=== PATIENT | female | born 1930 | race Caucasian/White ===

== ENCOUNTER 2017-04-01 12:55 | Inpatient (IN) | payer MEDICAID ==
[2017-04-01] MEDS ORDERED: Sodium Chloride 0.9% 10 ML Syringe FLUSH PRN (13:02)
[2017-04-01] MEDS ORDERED: Pantoprazole 40 MG Vial IVPUSH ONE (13:02)
[2017-04-01] MEDS ORDERED: Sodium Chloride 0.9% 2.5 ML Syringe FLUSH PRN (13:02)
--- NOTE | 2017-04-01 13:05 | EDM.PDOC ---
ED HPI GENERAL MEDICAL PROBLEM - General Chief Complaint: Gastrointestinal Problem Stated Complaint: AMB Time Seen by Provider: 04/01/17 12:59 - History of Present Illness INITIAL COMMENTS - FREE TEXT/NARRATIVE: HISTORY AND PHYSICAL: History of present illness: Patient is an 86-year-old female presents from [facility] with bloody melanotic stools patient denies any complaints upon arrival patient is contracted she has some limited history due to her baseline. Review of systems: As per history of present illness and below otherwise all systems reviewed and negative. Past medical history: As per history of present illness and as reviewed below otherwise noncontributory. Surgical history: As per history of present illness and as reviewed below otherwise noncontributory. Social history: No reported history of drug or alcohol abuse. Family history: As per history of present illness and as reviewed below otherwise noncontributory. Physical exam: HEENT: Atraumatic, normocephalic, pupils reactive, conjunctival pallor noted no scleral icterus, mucous membranes moist, throat clear, neck supple, nontender, trachea midline. Lungs: Slightly coarse diminished, breath sounds equal bilaterally, chest nontender. Heart: S1S2, regular, negative for clicks, rubs, or JVD. Abdomen: Soft, nondistended, nontender. Negative for masses or hepatosplenomegaly. Negative for costovertebral tenderness. Pelvis: Stable nontender. Genitourinary: Deferred. Rectal: Dark maroon loose stool noted strongly heme positive Extremities: Contractures noted neurovascular exam unremarkable. Neuro: Awake, alert, follows commands baseline per history no focal deficits Diagnostics: CBC CMP troponin PT/INR type and screen chest x-ray EKG CT abdomen and pelvis Therapeutics: IV O2 monitor Protonix 80 mg IV push followed by 8 mg an hour drip Impression: #1 GI bleeding Definitive disposition and diagnosis as appropriate pending reevaluation and review of above. abdominal Pain Score (Numeric/FACES): 2 - Related Data Allergies Allergy/AdvReac Type Severity Reaction Status Date / Time acetaminophen [From Tylenol] Allergy Shortness Verified 04/01/17 13:00 of Breath perfume Allergy Rash Verified 04/01/17 13:00 Home Meds: Home Meds Carvedilol [Coreg] 12.5 mg PO BID 09/23/14 [History] Meclizine [Antivert] 25 mg PO TID PRN 09/23/14 [History] Omeprazole 20 mg PO DAILY 09/23/14 [History] amLODIPine [Norvasc] 5 mg PO DAILY 09/23/14 [History] atorvaSTATin [Lipitor] 20 mg PO BEDTIME 09/23/14 [History] Ferrous Sulfate 325 mg PO TIDMEALS #45 tablet 09/27/14 [Rx] Past Medical History Other HEENT History: both eyes has cataract Other Cardiovascular History: irregular heartbeat Other OB/BYN History: hysterectomy - Past Surgical History Other Musculoskeletal Surgeries/Procedures:: left hip surgery, bilateral knee surgery Social & Family History - Tobacco Use Smoking Status *Q: Former Smoker Second Hand Smoke Exposure: No - Recreational Drug Use Recreational Drug Use: No ED ROS GENERAL - Review of Systems Review Of Systems: ROS reveals no pertinent complaints other than HPI. ED EXAM, GENERAL - Physical Exam Exam: See Below (See dictation) Course - Vital Signs Last Recorded V/S: Last Vital Signs Temp 36.3 C 04/01/17 13:01 Pulse 87 04/01/17 13:01 Resp 20 04/01/17 13:01 BP 148/68 H 04/01/17 13:01 Pulse Ox 97 04/01/17 13:01 - Orders/Labs/Meds Orders: Active Orders 24 hr Category Date Time Status Cardiac Monitoring [RC] . DIRECTED Care 04/01/17 13:01 Active EKG Documentation Completion [RC] STAT Care 04/01/17 13:01 Active Oxygen Therapy, ED [RC] ASDIRECTED Care 04/01/17 13:01 Active Pulse Oximetry [RC] ASDIRECTED Care 04/01/17 13:01 Active Verify Patient Consent Obtain [RC] ASDIRECTED Care 04/01/17 14:00 Active Abdomen Pelvis wo Cont [CT] Stat Exams 04/01/17 13:06 Ordered Chest 1V Frontal [CR] Stat Exams 04/01/17 13:02 Taken COMPREHENSIVE METABOLIC PN,CMP [CHEM] Stat Lab 04/01/17 13:28 Received CULTURE URINE [RM] Stat Lab 04/01/17 13:02 Uncollected RED BLOOD CELLS LP [BBK] Stat Lab 04/01/17 13:28 Received TROPONIN I [CHEM] Stat Lab 04/01/17 13:28 Received TYPE AND SCREEN [BBK] Stat Lab 04/01/17 13:28 Received UA W/MICROSCOPIC [URIN] Stat Lab 04/01/17 13:02 Uncollected Pantoprazole [ProTONIX IV] 80 mg Med 04/01/17 13:41 Active Sodium Chloride 0.9% [Normal Saline] 50 ml IV .Continuous Sodium Chloride 0.9% [Normal Saline] 1,000 ml Med 04/01/17 13:15 Active IV STAT Sodium Chloride 0.9% [Saline Flush] Med 04/01/17 13:02 Active 10 ml FLUSH ASDIRECTED PRN Sodium Chloride 0.9% [Saline Flush] Med 04/01/17 13:02 Active 2.5 ml FLUSH ASDIRECTED PRN Saline Lock Insert [OM.PC] Stat Oth 04/01/17 13:01 Ordered Transfuse Red Blood Cells [COMM] Stat Oth 04/01/17 14:00 Ordered Medication Orders Sodium Chloride (Normal Saline) 1,000 mls @ 125 mls/hr IV STAT EGM Last Admin: 04/01/17 13:46 Dose: 125 mls/hr Pantoprazole Sodium 80 mg/ (Sodium Chloride) 50 mls @ 5 mls/hr IV .Continuous GEM Sodium Chloride (Saline Flush) 10 ml FLUSH ASDIRECTED PRN PRN Reason: Keep Vein Open Last Admin: 04/01/17 13:47 Dose: 10 ml Sodium Chloride (Saline Flush) 2.5 ml FLUSH ASDIRECTED PRN PRN Reason: Keep Vein Open Last Admin: 04/01/17 13:47 Dose: 2.5 ml Labs: Laboratory Tests 04/01/17 04/01/17 Range/Units 13:28 13:28 WBC 10.68 (4.0-11.0) K/uL RBC 2.66 L (4.30-5.90) M/uL Hgb 7.7 L (12.0-16.0) g/dL Hct 24.3 L (36.0-46.0) % MCV 91.4 (80.0-98.0) fL MCH 28.9 (27.0-32.0) pg MCHC 31.7 (31.0-37.0) g/dL RDW Std Deviation 49.1 (28.0-62.0) fl RDW Coeff of Steven 15 (11.0-15.0) % Plt Count 255 (150-400) K/uL MPV 9.90 (7.40-12.00) fL Add Manual Diff YES Neutrophils % (Manual) 72 (48.0-80.0) % Band Neutrophils % 5 % Lymphocytes % (Manual) 21 (16.0-40.0) % Monocytes % (Manual) 2 (0.0-15.0) % Nucleated RBC % 0.0 /100WBC Absolute Seg Neuts 7.7 H (1.4-5.7) Band Neutrophils # 0.5 Lymphocytes # (Manual) 2.2 (0.6-2.4) Monocytes # (Manual) 0.2 (0.0-0.8) Nucleated RBCs # 0 K/uL INR 1.02 (0.86-1.11) Meds: Medications Generic Name Dose Route Start Last Admin Trade Name Freq PRN Reason Stop Dose Admin Sodium Chloride 1,000 mls @ 125 mls/hr 04/01/17 13:15 04/01/17 13:46 Normal Saline IV 125 mls/hr STAT GEM Administration Pantoprazole Sodium 80 mg/ 50 mls @ 5 mls/hr 04/01/17 13:41 Sodium Chloride IV .Continuous GEM Sodium Chloride 10 ml 04/01/17 13:02 04/01/17 13:47 Saline Flush FLUSH 10 ml ASDIRECTED PRN Administration Keep Vein Open Sodium Chloride 2.5 ml 04/01/17 13:02 04/01/17 13:47 Saline Flush FLUSH 2.5 ml ASDIRECTED PRN Administration Keep Vein Open Discontinued Medications Generic Name Dose Route Start Last Admin Trade Name Freq PRN Reason Stop Dose Admin Pantoprazole Sodium 80 mg/ 100 mls @ 10 mls/hr 04/01/17 13:15 Sodium Chloride IV .Continuous GEM Pantoprazole Sodium 80 mg 04/01/17 13:02 04/01/17 13:47 Protonix Iv IVPUSH 04/01/17 13:03 80 mg .BOLUS ONE Administration Departure - Departure Time of Disposition: 14:04 Disposition: Admitted As Inpatient 67 Condition: Fair Clinical Impression: GI bleed, DNR (do not resuscitate) - Discharge Information Referrals: PCP,None [Primary Care Provider] - Forms: ED Department Discharge - My Orders Last 24 Hours: My Active Orders 04/01/17 13:01 Cardiac Monitoring [RC] . DIRECTED EKG Documentation Completion [RC] STAT Oxygen Therapy, ED [RC] ASDIRECTED Pulse Oximetry [RC] ASDIRECTED Saline Lock Insert [OM.PC] Stat 04/01/17 13:02 Chest 1V Frontal [CR] Stat CULTURE URINE [RM] Stat UA W/MICROSCOPIC [URIN] Stat Sodium Chloride 0.9% [Saline Flush] 10 ml FLUSH ASDIRECTED PRN Sodium Chloride 0.9% [Saline Flush] 2.5 ml FLUSH ASDIRECTED PRN 04/01/17 13:06 Abdomen Pelvis wo Cont [CT] Stat 04/01/17 13:15 Sodium Chloride 0.9% [Normal Saline] 1,000 ml IV STAT 04/01/17 13:28 COMPREHENSIVE METABOLIC PN,CMP [CHEM] Stat RED BLOOD CELLS LP [BBK] Stat TROPONIN I [CHEM] Stat TYPE AND SCREEN [BBK] Stat 04/01/17 13:41 Pantoprazole [ProTONIX IV] 80 mg Sodium Chloride 0.9% [Normal Saline] 50 ml IV .Continuous 04/01/17 14:00 Verify Patient Consent Obtain [RC] ASDIRECTED Transfuse Red Blood Cells [COMM] Stat - Assessment/Plan Last 24 Hours: My Active Orders 04/01/17 13:01 Cardiac Monitoring [RC] . DIRECTED EKG Documentation Completion [RC] STAT Oxygen Therapy, ED [RC] ASDIRECTED Pulse Oximetry [RC] ASDIRECTED Saline Lock Insert [OM.PC] Stat 04/01/17 13:02 Chest 1V Frontal [CR] Stat CULTURE URINE [RM] Stat UA W/MICROSCOPIC [URIN] Stat Sodium Chloride 0.9% [Saline Flush] 10 ml FLUSH ASDIRECTED PRN Sodium Chloride 0.9% [Saline Flush] 2.5 ml FLUSH ASDIRECTED PRN 04/01/17 13:06 Abdomen Pelvis wo Cont [CT] Stat 04/01/17 13:15 Sodium Chloride 0.9% [Normal Saline] 1,000 ml IV STAT 04/01/17 13:28 COMPREHENSIVE METABOLIC PN,CMP [CHEM] Stat RED BLOOD CELLS LP [BBK] Stat TROPONIN I [CHEM] Stat TYPE AND SCREEN [BBK] Stat 04/01/17 13:41 Pantoprazole [ProTONIX IV] 80 mg Sodium Chloride 0.9% [Normal Saline] 50 ml IV .Continuous 04/01/17 14:00 Verify Patient Consent Obtain [RC] ASDIRECTED Transfuse Red Blood Cells [COMM] Stat
[2017-04-01] MEDS ORDERED: Pantoprazole 80 MG in Sodium Chloride 0.9% 100 ML IV SCH (13:15)
[2017-04-01] MEDS: Sodium Chloride 0.9% 1,000 ML IV SCH (13:46)
[2017-04-01 14:06] LABS: CHLORIDE,CL 105 mmol/L (98-110); SODIUM,NA 135 mmol/L (136-146)
--- NOTE | 2017-04-01 14:06 | CR ---
EXAMINATION: Portable chest radiograph. HISTORY: Shortness of breath. FINDINGS: The trachea is midline. The cardiomediastinal silhouette is within normal limits. Trace left retrocar diac infiltrate is not excluded. No pleural effusion or pneumothorax. Degenerative changes noted within the shoulders. IMPRESSION: Trace left retrocardiac infiltrate or atelectasis not excluded.
--- NOTE | 2017-04-01 14:36 | CT ---
CT of the abdomen and pelvis without contrast. HISTORY: Pain TECHNIQUE: Axial CT images were obtained of the abdomen and pelvis without contrast. Coronal and sagi ttal reconstructions obtained. FINDINGS: The lung bases are clear, no pleural effusion. The liver, spleen, adrenal glands, and pancreas appear unremarkable for noncontrast examination. Chol elithiasis without evidence of cholecystitis. There is no bulky retroperitoneal lymphadenopathy. No a bdominal ascites. Aortic atheromatous changes noted. There are no calcifications noted within the kidneys or along the courses of the ureters bilaterally. Renal cortical cysts are noted. There is a lobulated 6.5 x 2.6 cm fluid collection posterior and lat eral to the left psoas musculature. No significant adjacent stranding. The large and small bowel are normal in caliber without evidence of obstruction. Minimal diverticulos is without evidence of diverticulitis. There is no bulky pelvic lymphadenopathy. No free fluid. No fr ee air. The urinary bladder appears normal. Right hip hardware is demonstrated. Osseous structures otherwise appear osteopenic. 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 IMPRESSION: 1. No acute findings within the abdomen or pelvis. 2. Cholelithiasis without definite evidence of cholecystitis. 3. Simple appearing lobulated 6.5 x 2.8 cm cyst adjacent to the left psoas musculature. Etiology is u ncertain, this could represent a peritoneal reflection cyst. 4. Advanced osteophytic changes noted within the left hip.
[2017-04-01] MEDS ORDERED: Morphine 2 MG/ML Syringe IVPUSH PRN (16:23)
[2017-04-01] MEDS ORDERED: Ondansetron 4 MG/2 ML SDV IVPUSH PRN (16:23)
[2017-04-01] MEDS ORDERED: Ondansetron 4 MG Tab.DIS PO PRN (16:23)
[2017-04-01] MEDS ORDERED: Polyethylene Glycol 3350 Powder 17 GM Packet PO PRN (16:23)
--- NOTE | 2017-04-01 16:47 | PCM.HP ---
H&P History of Present Illness - General Date of Service: 04/01/17 Admit Problem/Dx: Admission Diagnosis/Problem Admission Diagnosis/Problem GI bleed not requiring more than 4 units of blood in 24 hours, ICU, or surgery Source of Information: Patient, Family History Limitations: Reports: Physical Impairment - History of Present Illness Initial Comments - Free Text/Narative: 86-year-old female brought to ER by ambulance from [place] for bright red blood per rectum with past medical history of hypertension, hyperlipidemia, anemia, GERD, and proximal A. fib not anticoagulated secondary fall risk. Patient was brought from [place] to emergency department secondary to bright red blood per rectum. As per ER and family she had been getting more fatigued recently and they noted some bright red per rectum this morning. She has had a couple days of melanotic stools. They deny any recent illness, fever, chills, nausea, vomiting, sore throat, chest pain, palpitations, shortness breath, syncopal episodes, or focal neurologic deficits. She has had a dry cough which is chronic. In the emergency department she was found to be anemic with a hemoglobin of 7.7. Hyponatremic sodium 135, potassium 5.7, hypocalcemia 8.2. Urine was positive for UTI. Chest x-ray showed trace left retrocardiac infiltrate or atelectasis. Patient was afebrile. CT of the abdomen showed: 1. No acute findings within abdomen or pelvis. 2. Cholelithiasis without definitive evidence of cholecystitis. 3. Simple appearing lobulated 6.5 x 2.8 cm cyst adjacent to the left psoas musculature. Etiology is uncertain, this could represent a peritoneal reflection cyst. 4. Advanced osteophyte phytic changes within the left hip. She was give 80 of protonix and started on a protonix drip. Patient was admitted for acute GI bleed/anemia/UTI. abdominal Pain Score (Numeric/FACES): 8 - Related Data Allergies/Adverse Reactions: Allergies Allergy/AdvReac Type Severity Reaction Status Date / Time acetaminophen [From Tylenol] Allergy Shortness Verified 04/01/17 13:00 of Breath perfume Allergy Rash Verified 04/01/17 13:00 Home Medications: Home Meds Carvedilol [Coreg] 12.5 mg PO BID 09/23/14 [History] Meclizine [Antivert] 25 mg PO TID PRN 09/23/14 [History] Omeprazole 20 mg PO DAILY 09/23/14 [History] amLODIPine [Norvasc] 5 mg PO DAILY 09/23/14 [History] atorvaSTATin [Lipitor] 20 mg PO BEDTIME 09/23/14 [History] Ferrous Sulfate 325 mg PO TIDMEALS #45 tablet 09/27/14 [Rx] Past Medical History Other HEENT History: both eyes has cataract Cardiovascular History: Reports: Afib Other Cardiovascular History: irregular heartbeat Respiratory History: Reports: Asthma Gastrointestinal History: Reports: GI Bleed Genitourinary History: Reports: UTI, Recurrent Other OB/BYN History: hysterectomy Psychiatric History: Reports: Depression Endocrine/Metabolic History: Reports: Diabetes, Type II - Past Surgical History Other Musculoskeletal Surgeries/Procedures:: left hip surgery, bilateral knee surgery Social & Family History - Family History Family Medical History: Noncontributory - Tobacco Use Smoking Status *Q: Unknown Ever Smoked Second Hand Smoke Exposure: No - Caffeine Use Caffeine Use: Reports: None - Recreational Drug Use Recreational Drug Use: No H&P Review of Systems - Review of Systems: Review Of Systems: See Below General: Denies: Fever, Chills, Fatigue HEENT: Denies: Dysphasia Pulmonary: Reports: Wheezing, Cough. Denies: Shortness of Breath, Pleuritic Chest Pain, Sputum, Hemoptysis Cardiovascular: Denies: Chest Pain, Palpitations Gastrointestinal: Reports: Black Stool, Bloody Stool. Denies: Abdominal Pain, Nausea, Vomiting Genitourinary: Denies: Dysuria, Burning, Pain, Hematuria Musculoskeletal: Reports: Joint Pain, Joint Swelling. Denies: Neck Pain Psychiatric: Reports: Confusion Neurological: Reports: Confusion. Denies: Dizziness, Headache Hematologic/Lymphatic: Reports: Anemia Exam - Exam Exam: See Below - Vital Signs Vital Signs: Last Vital Signs Temp 96.3 F 04/01/17 16:00 Pulse 95 04/01/17 16:00 Resp 22 H 04/01/17 16:00 BP 129/64 04/01/17 16:00 Pulse Ox 99 04/01/17 16:00 Weight: 80.83 kg - Exam Quality Assessment: DVT Prophylaxis General: Alert, Cooperative HEENT: Conjunctiva Clear, EACs Clear, EOMI, Hearing Intact, Mucosa Moist & [place] , Nares Patent, Normal Nasal Septum, Posterior Pharynx Clear Neck: Supple, Trachea Midline, 2 Lungs: Clear to Auscultation, Normal Respiratory Effort Cardiovascular: Regular Rate, Regular Rhythm, Normal S1, Normal S2 GI/Abdominal Exam: Normal Bowel Sounds, Soft, Non-Tender, No Organomegaly, No Distention, No Abnormal Bruit Back Exam: Normal Inspection Extremities: No Pedal Edema, Normal Capillary Refill, Arm Pain, Limited Range of Motion Peripheral Pulses: 2+: Radial (L), Radial (R), Posterior Tibial (L), Posterior Tibial (R), Dorsalis Pedis (L), Dorsalis Pedis (R) Skin: Warm, Dry, Intact Neurological: Cranial Nerves Intact Neuro Extensive - Mental Status: Alert, Normal Mood/Affect, Normal Cognition Neuro Extensive - Motor, Sensory, Reflexes: CN II-XII Intact Psychiatric: Alert, Normal Affect, Normal Mood - Patient Data Lab Results Last 24 hrs: Laboratory Results - last 24 hr 04/01/17 Range/Units 15:45 Urine Color YELLOW Urine Appearance CLOUDY Urine pH 6.0 (5.0-8.0) Ur Specific [place] 1.015 (1.001-1.035) Urine Protein TRACE (NEGATIVE) mg/dL Urine Glucose (UA) NEGATIVE (NEGATIVE) mg/dL Urine Ketones NEGATIVE (NEGATIVE) mg/dL Urine Occult Blood MODERATE (NEGATIVE) Urine Nitrite NEGATIVE (NEGATIVE) Urine Bilirubin NEGATIVE (NEGATIVE) Urine Urobilinogen 0.2 (<2.0) EU/dL Ur Leukocyte Esterase LARGE (NEGATIVE) Urine RBC 0-2 (0-2/HPF) Urine WBC 45-50 (0-5/HPF) Ur Epithelial Cells OCCASIONAL (NONE-FEW) Urine Bacteria 2+ H (NEGATIVE) Result Diagrams: 04/01/17 13:28 04/01/17 13:28 *Q Meaningful Use (ADM) - VTE *Q VTE Criteria *Q: - Stroke *Q Stroke Criteria *Q: - AMI *Q AMI Criteria *Q: - Problem List (1) Acute GI bleeding SNOMED Code(s): 76425872 ICD Code: K92.2 - GASTROINTESTINAL HEMORRHAGE, UNSPECIFIED Status: Acute Priority: High Current Visit: Yes (2) Hypertension SNOMED Code(s): 98639279 ICD Code: I10 - ESSENTIAL (PRIMARY) HYPERTENSION Status: Chronic Priority : Medium Current Visit: Yes Qualifiers: Hypertension type: essential hypertension Qualified Code(s): I10 - Essential (primary) hypertension (3) UTI (urinary tract infection) SNOMED Code(s): 03393946 ICD Code: N39.0 - URINARY TRACT INFECTION, SITE NOT SPECIFIED Status: Acute Priority: High Current Visit: Yes Qualifiers: Urinary tract infection type: acute cystitis (4) Arthritis, rheumatoid SNOMED Code(s): 43274401 ICD Code: M06.9 - RHEUMATOID ARTHRITIS, UNSPECIFIED Status: Chronic Priority: Low Current Visit: Yes Qualifiers: Rheumatoid arthritis location: multiple sites Rheumatoid factor presence: with rheumatoid factor Qualified Code(s): M05.79 - Rheumatoid arthritis with rheumatoid factor of multiple sites without organ or systems involvement (5) Diabetes mellitus SNOMED Code(s): 11647782 ICD Code: E11.9 - TYPE 2 DIABETES MELLITUS WITHOUT COMPLICATIONS Status: Chronic Priority: Medium Current Visit: Yes Qualifiers: Diabetes mellitus type: type 2 Diabetes mellitus complication status: without complication Diabetes mellitus keno terminal operator insulin use: unspecified keno terminal operator insulin use status Qualified Code(s): E11.9 - Type 2 diabetes mellitus without complications Problem List Initiated/Reviewed/Updated: Yes Orders Last 24hrs: Active Orders 24 hr Category Date Time Status Patient Status [ADT] Routine ADT 04/01/17 16:23 Ordered Antiembolic Devices [RC] PER UNIT ROUTINE Care 04/01/17 16:26 Ordered Notify Provider Consults [RC] ASDIRECTED Care 04/01/17 16:46 Ordered Oxygen Therapy [RC] PRN Care 04/01/17 16:23 Ordered RT Aerosol Therapy [RC] ASDIRECTED Care 04/01/17 16:26 Ordered Telemetry Monitoring [Cardiac Monitoring] [RC] . Care 04/01/17 16:38 Ordered DIRECTED Up With Assistance [RC] ASDIRECTED Care 04/01/17 16:23 Ordered VTE/DVT Education [RC] PER UNIT ROUTINE Care 04/01/17 16:23 Ordered Vital Signs [RC] Q4H Care 04/01/17 16:23 Ordered Consult to Physician [CONS] Routine Cons 04/01/17 16:45 Ordered Nothing per Oral Now Diet [DIET] Diet 04/01/17 Dinner Ordered Barium Enema Therapeutic [CR] Routine Exams 04/01/17 16:29 Ordered CBC W/O DIFF,HEMOGRAM [HEME] AM Lab 04/02/17 05:11 Ordered CBC W/O DIFF,HEMOGRAM [HEME] AM Lab 04/03/17 05:11 Ordered CBC W/O DIFF,HEMOGRAM [HEME] AM Lab 04/04/17 05:11 Ordered CBC W/O DIFF,HEMOGRAM [HEME] AM Lab 04/05/17 05:11 Ordered COMPREHENSIVE METABOLIC PN,CMP [CHEM] AM Lab 04/02/17 05:11 Ordered COMPREHENSIVE METABOLIC PN,CMP [CHEM] AM Lab 04/03/17 05:11 Ordered COMPREHENSIVE METABOLIC PN,CMP [CHEM] AM Lab 04/04/17 05:11 Ordered COMPREHENSIVE METABOLIC PN,CMP [CHEM] AM Lab 04/05/17 05:11 Ordered MAGNESIUM [CHEM] AM Lab 04/02/17 05:11 Ordered PHOSPHORUS [CHEM] AM Lab 04/02/17 05:11 Ordered Albuterol/Ipratropium [DuoNeb 3.0-0.5 MG/3 ML] Med 04/01/17 16:23 Ordered 3 ml NEB Q6H PRN Morphine Med 04/01/17 16:23 Ordered 2 mg IVPUSH Q2H PRN Ondansetron [Zofran ODT] Med 04/01/17 16:23 Ordered 4 mg PO Q4H PRN Ondansetron [Zofran] Med 04/01/17 16:23 Ordered 4 mg IVPUSH Q4H PRN Pantoprazole [ProTONIX IV] Med 04/02/17 09:00 Ordered 80 mg IVPUSH BID Polyethylene Glycol 3350 [MiraLAX] Med 04/01/17 16:23 Ordered 17 gm PO DAILY PRN Sodium Chloride 0.9% @ 125 MLS/HR (1000ml) Med 04/01/17 16:30 Ordered Sodium Chloride 0.9% [Normal Saline] 1,000 ml IV ASDIRECTED Sequential Compression Device [OM.PC] Per Unit Routine Oth 04/01/17 16:24 Ordered Resuscitation Status Routine Resus Stat 04/01/17 16:23 Ordered Medication Orders Albuterol/Ipratropium (Duoneb 3.0-0.5 Mg/3 Ml) 3 ml NEB Q6H PRN PRN Reason: Shortness Of Breath/wheezing Sodium Chloride (Normal Saline) 1,000 mls @ 125 mls/hr IV STAT GEM Last Admin: 04/01/17 13:46 Dose: 125 mls/hr Pantoprazole Sodium 80 mg/ (Sodium Chloride) 50 mls @ 5 mls/hr IV .Continuous GEM Stop: 04/02/17 00:01 Last Admin: 04/01/17 14:50 Dose: 5 mls/hr Sodium Chloride (Normal Saline) 1,000 mls @ 125 mls/hr IV ASDIRECTED GME Morphine Sulfate (Morphine) 2 mg IVPUSH Q2H PRN PRN Reason: Pain (severe 7-10) Ondansetron HCl (Zofran Odt) 4 mg PO Q4H PRN PRN Reason: nausea, able to take PO Ondansetron HCl (Zofran) 4 mg IVPUSH Q4H PRN PRN Reason: Pain Pantoprazole Sodium (Protonix Iv) 80 mg IVPUSH BID GEM Polyethylene Glycol (Miralax) 17 gm PO DAILY PRN PRN Reason: Constipation Sodium Chloride (Saline Flush) 10 ml FLUSH ASDIRECTED PRN PRN Reason: Keep Vein Open Last Admin: 04/01/17 13:47 Dose: 10 ml Sodium Chloride (Saline Flush) 2.5 ml FLUSH ASDIRECTED PRN PRN Reason: Keep Vein Open Last Admin: 04/01/17 13:47 Dose: 2.5 ml Assessment/Plan Comment:: 86-year-old female admitted for anemia hemoglobin 7.7 suspected acute GI bleed found to have UTI with past medical history of hypertension, hyperlipidemia, DM2 , rheumatoid arthritis, GERD. Suspected acute GI bleed: We'll transfuse 2 units packed red blood cells now. Get an H&H 1 hour after transfusion. May need additional units which will be ordered at that time. Therapeutic barium enema ordered. Nothing by mouth. A consult to Dr. Zimmer surgery was made and he is aware of patient. Patient was given Protonix 80 mg IV as well started on a drip. Will continue Protonix for 72 hours and will also likely add Carafate once patient started back on diet. IVF 125 NS monitor closely for vol. overload. UTI: Positive urinalysis will start on levofloxacin 750 mg IV daily. No leukocystosis or fever Hypertension: Currently stable will restart home meds and monitor closely. Hyperlipidemia: Stable at this time resume. DM2: ISS low TIDAC Rheumatoid arthritis: Patient does have a 25 g fentanyl patch which we will continue. GERD: Most likely etiology of suspected GI bleed. Currently treated with Protonix. VTE proph: SCD no pharmacologic secondary to acute GI bleed. Distal: 3-4 days.
[2017-04-01] MEDS ORDERED: Levofloxacin/Dextrose 5%-Water 750 MG in Premix Bag 1 BAG IV ONE (17:05)
[2017-04-02] MEDS: Sodium Chloride 0.9% 1,000 ML IV SCH ×3 (01:43→18:28)
--- NOTE | 2017-04-02 06:39 | PCM.PN ---
- General Info Date of Service: 04/02/17 Admission Dx/Problem (Free Text): Admission Diagnosis/Problem Admission Diagnosis/Problem GI bleed not requiring more than 4 units of blood in 24 hours, ICU, or surgery Subjective Update: Feeling better this morning not as fatigued. Denies any further bloody stools. Brown stool this am as per nursing. Was not able to get barium enema. NPO. Left arm pain from RA will need to get her fentanyl patch started from [place] which is still being verified. Russ in place. Functional Status: Reports: Pain Controlled - Review of Systems General: Denies: Fever, Weakness, Fatigue HEENT: Denies: Headaches, Visual Changes Pulmonary: Denies: Shortness of Breath, Hemoptysis Cardiovascular: Denies: Chest Pain, Palpitations, Edema Gastrointestinal: Denies: Abdominal Pain, Diarrhea, Nausea, Vomiting Genitourinary: Denies: Dysuria, Hematuria Musculoskeletal: Reports: Arm Pain. Denies: Neck Pain Skin: Denies: Cyanosis Neurological: Reports: Confusion. Denies: Dizziness, Headache - Patient Data Vitals - Most Recent: Last Vital Signs Temp 98.9 F 04/02/17 04:00 Pulse 74 04/02/17 04:00 Resp 20 04/02/17 04:00 BP 125/62 04/02/17 04:00 Pulse Ox 96 04/02/17 04:00 Weight - Most Recent: 80.83 kg I&O - Last 24 Hours: Intake & Output 04/01/17 04/01/17 04/02/17 14:59 22:59 06:59 Intake Total 350 716 Output Total 800 Balance 350 -84 Lab Results Last 24 Hours: Laboratory Results - last 24 hr 04/01/17 04/02/17 Range/Units 15:45 05:42 WBC 11.20 H (4.0-11.0) K/uL RBC 3.13 L (4.30-5.90) M/uL Hgb 9.3 L (12.0-16.0) g/dL Hct 27.6 L (36.0-46.0) % MCV 88.2 (80.0-98.0) fL MCH 29.7 (27.0-32.0) pg MCHC 33.7 (31.0-37.0) g/dL RDW Std Deviation 47.8 (28.0-62.0) fl RDW Coeff of Steven 15 (11.0-15.0) % Plt Count 199 (150-400) K/uL MPV 9.80 (7.40-12.00) fL Nucleated RBC % 0.0 /100WBC Nucleated RBCs # 0 K/uL Urine Color YELLOW Urine Appearance CLOUDY Urine pH 6.0 (5.0-8.0) Ur Specific [place] 1.015 (1.001-1.035) Urine Protein TRACE (NEGATIVE) mg/dL Urine Glucose (UA) NEGATIVE (NEGATIVE) mg/dL Urine Ketones NEGATIVE (NEGATIVE) mg/dL Urine Occult Blood MODERATE (NEGATIVE) Urine Nitrite NEGATIVE (NEGATIVE) Urine Bilirubin NEGATIVE (NEGATIVE) Urine Urobilinogen 0.2 (<2.0) EU/dL Ur Leukocyte Esterase LARGE (NEGATIVE) Urine RBC 0-2 (0-2/HPF) Urine WBC 45-50 (0-5/HPF) Ur Epithelial Cells OCCASIONAL (NONE-FEW) Urine Bacteria 2+ H (NEGATIVE) Med Orders - Current: Current Medications Albuterol/Ipratropium (Duoneb 3.0-0.5 Mg/3 Ml) 3 ml NEB Q6H PRN PRN Reason: Shortness Of Breath/wheezing Sodium Chloride (Normal Saline) 1,000 mls @ 125 mls/hr IV STAT [facility] Last Admin: 04/01/17 13:46 Dose: 125 mls/hr Sodium Chloride (Normal Saline) 1,000 mls @ 125 mls/hr IV ASDIRECTED [facility] Last Admin: 04/02/17 01:43 Dose: 125 mls/hr Insulin Aspart (Novolog) 0 unit SUBCUT TIDAC [facility] PRN Reason: Protocol Morphine Sulfate (Morphine) 2 mg IVPUSH Q2H PRN PRN Reason: Pain (severe 7-10) Ondansetron HCl (Zofran Odt) 4 mg PO Q4H PRN PRN Reason: nausea, able to take PO Ondansetron HCl (Zofran) 4 mg IVPUSH Q4H PRN PRN Reason: Pain Pantoprazole Sodium (Protonix Iv) 80 mg IVPUSH BID [facility] Polyethylene Glycol (Miralax) 17 gm PO DAILY PRN PRN Reason: Constipation Sodium Chloride (Saline Flush) 10 ml FLUSH ASDIRECTED PRN PRN Reason: Keep Vein Open Last Admin: 04/01/17 13:47 Dose: 10 ml Sodium Chloride (Saline Flush) 2.5 ml FLUSH ASDIRECTED PRN PRN Reason: Keep Vein Open Last Admin: 04/01/17 13:47 Dose: 2.5 ml Discontinued Medications Pantoprazole Sodium 80 mg/ (Sodium Chloride) 100 mls @ 10 mls/hr IV .Continuous GEM Pantoprazole Sodium 80 mg/ (Sodium Chloride) 50 mls @ 5 mls/hr IV .Continuous GEM Stop: 04/02/17 00:01 Last Admin: 04/01/17 14:50 Dose: 5 mls/hr Levofloxacin/Dextrose 750 mg/ (Premix) 150 mls @ 100 mls/hr IV DAILY ONE Stop: 04/01/17 18:34 Last Admin: 04/01/17 17:40 Dose: 100 mls/hr Pantoprazole Sodium (Protonix Iv) 80 mg IVPUSH .BOLUS ONE Stop: 04/01/17 13:03 Last Admin: 04/01/17 13:47 Dose: 80 mg - Exam Quality Assessment: DVT Prophylaxis General: Alert, Cooperative, No Acute Distress HEENT: Pupils Equal, Pupils Reactive, EOMI, Mucous Membr. Moist/[place] Neck: Supple, Trachea Midline, No JVD Lungs: Normal Respiratory Effort, Crackles Cardiovascular: Regular Rate, Regular Rhythm GI/Abdominal Exam: Normal Bowel Sounds, Soft, Non-Tender, No Organomegaly, No Distention Back Exam: Normal Inspection Extremities: Normal Inspection, Non-Tender, No Pedal Edema, Normal Capillary Refill Peripheral Pulses: 2+: Radial (L), Radial (R), Posterior Tibial (L), Posterior Tibial (R), Dorsalis Pedis (L), Dorsalis Pedis (R) Skin: Warm, Dry, Intact Neurological: No New Focal Deficit Psy/Mental Status: Alert, Normal Affect, Normal Mood - Problem List & Annotations (1) Acute GI bleeding SNOMED Code(s): 84864239 Code(s): K92.2 - GASTROINTESTINAL HEMORRHAGE, UNSPECIFIED Status: Acute Priority: High Current Visit: Yes (2) Hypertension SNOMED Code(s): 33050251 Code(s): I10 - ESSENTIAL (PRIMARY) HYPERTENSION Status: Chronic Priority : Medium Current Visit: Yes Qualifiers: Hypertension type: essential hypertension Qualified Code(s): I10 - Essential (primary) hypertension (3) UTI (urinary tract infection) SNOMED Code(s): 22246379 Code(s): N39.0 - URINARY TRACT INFECTION, SITE NOT SPECIFIED Status: Acute Priority: High Current Visit: Yes Qualifiers: Urinary tract infection type: acute cystitis (4) Arthritis, rheumatoid SNOMED Code(s): 48082537 Code(s): M06.9 - RHEUMATOID ARTHRITIS, UNSPECIFIED Status: Chronic Priority: Low Current Visit: Yes Qualifiers: Rheumatoid arthritis location: multiple sites Rheumatoid factor presence: with rheumatoid factor Qualified Code(s): M05.79 - Rheumatoid arthritis with rheumatoid factor of multiple sites without organ or systems involvement (5) Diabetes mellitus SNOMED Code(s): 02201378 Code(s): E11.9 - TYPE 2 DIABETES MELLITUS WITHOUT COMPLICATIONS Status: Chronic Priority: Medium Current Visit: Yes Qualifiers: Diabetes mellitus type: type 2 Diabetes mellitus complication status: without complication Diabetes mellitus 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 insulin use: unspecified detention insulin use status Qualified Code(s): E11.9 - Type 2 diabetes mellitus without complications - Problem List Review Problem List Initiated/Reviewed/Updated: Yes - My Orders Last 24 Hours: My Active Orders 04/01/17 16:23 Patient Status [ADT] Routine Oxygen Therapy [RC] PRN Up With Assistance [RC] ASDIRECTED Vital Signs [RC] Q4H Albuterol/Ipratropium [DuoNeb 3.0-0.5 MG/3 ML] 3 ml NEB Q6H PRN Morphine 2 mg IVPUSH Q2H PRN Ondansetron [Zofran ODT] 4 mg PO Q4H PRN Ondansetron [Zofran] 4 mg IVPUSH Q4H PRN Polyethylene Glycol 3350 [MiraLAX] 17 gm PO DAILY PRN Resuscitation Status Routine 04/01/17 16:24 Sequential Compression Device [OM.PC] Per Unit Routine 04/01/17 16:26 Antiembolic Devices [RC] PER UNIT ROUTINE RT Aerosol Therapy [RC] ASDIRECTED 04/01/17 16:30 Sodium Chloride 0.9% [Normal Saline] 1,000 ml IV ASDIRECTED 04/01/17 16:38 Telemetry Monitoring [Cardiac Monitoring] [RC] Q8H 04/01/17 16:45 Consult to Physician [CONS] Routine 04/01/17 16:46 Notify Provider Consults [RC] ASDIRECTED 04/01/17 Dinner Nothing per Oral Now Diet [DIET] 04/02/17 05:42 COMPREHENSIVE METABOLIC PN,CMP [CHEM] AM MAGNESIUM [CHEM] AM PHOSPHORUS [CHEM] AM 04/02/17 07:30 Insulin Aspart [NovoLOG] See Protocol SUBCUT TIDAC 04/02/17 09:00 Pantoprazole [ProTONIX IV] 80 mg IVPUSH BID 04/03/17 05:11 CBC W/O DIFF,HEMOGRAM [HEME] AM COMPREHENSIVE METABOLIC PN,CMP [CHEM] AM 04/04/17 05:11 CBC W/O DIFF,HEMOGRAM [HEME] AM COMPREHENSIVE METABOLIC PN,CMP [CHEM] AM 04/05/17 05:11 CBC W/O DIFF,HEMOGRAM [HEME] AM COMPREHENSIVE METABOLIC PN,CMP [CHEM] AM - Plan Plan:: 86-year-old female admitted for anemia hemoglobin 7.7 suspected acute GI bleed found to have UTI with past medical history of hypertension, hyperlipidemia, DM2 , rheumatoid arthritis, GERD. Suspected acute GI bleed: Transfused 2 untis prbc's yesterday hgb up from 7.7 to 9.3 this am. Therapeutic barium enema was not able to be given yesterday but brown stool this am. Nothing by mouth will advance to clears in afternoon. Dr. Zimmer surgery consulted. Continue Protonix for 72 hours and will also likely add Carafate once patient started back on diet. IVF 125 NS monitor closely for vol. overload. UTI: Leukocytosis of 11.2k this am. Positive urinalysis. Cont. levofloxacin 750 mg IV day 2. No fever Hypertension: Currently stable cont home meds and monitor closely. Hyperlipidemia: Stable at this time resume. DM2: ISS low TIDAC Rheumatoid arthritis: Patient does have a 25 g fentanyl patch which is continued IV 2 mg Morphine for breakthrough. GERD: Most likely etiology of suspected GI bleed. Currently treated with Protonix may need increased dosage when goes home. VTE proph: SCD no pharmacologic secondary to acute GI bleed. Distal: 2-3 days.
[2017-04-02] MEDS ORDERED: Calcium Carbonate 500 MG Tab.Chew PO ONE (07:13)
[2017-04-02] MEDS: Insulin Aspart 100 Units/ML 3 ML Pen SUBCUT SCH ×3 (08:28→17:06)
[2017-04-02] MEDS: Pantoprazole 40 MG Vial IVPUSH SCH ×2 (08:37→21:18)
--- NOTE | 2017-04-02 10:45 | PCM.CONS ---
H&P History of Present Illness - General Date of Service: 04/02/17 Admit Problem/Dx: Admission Diagnosis/Problem Admission Diagnosis/Problem GI bleed not requiring more than 4 units of blood in 24 hours, ICU, or surgery Source of Information: Patient, Provider History Limitations: Reports: Altered Mental Status, Physical Impairment - History of Present Illness Initial Comments - Free Text/Narative: Patient is an 86-year-old female transferred from [facility] yesterday with a history of melanotic stools for a couple of days followed by 2-3 days of bright red rectal bleeding. She was evaluated in the emergency room and found have a hemoglobin of 7.7. She has subsequently been transfused to a hemoglobin above 9. She currently denies any abdominal pain. A CT scan of the abdomen did reveal minimal diverticulosis. Onset of Symptoms: Reports: Gradual Duration of Symptoms: Reports: Day(s): Location: Reports: Abdomen Quality: Reports: Ache Severity: Mild Improves with: Reports: None Worsens with: Reports: None Context: Reports: Other (Rectal bleeding with black stools) Associated Symptoms: Reports: No Other Symptoms abdominal Pain Score (Numeric/FACES): 8 - Related Data Allergies/Adverse Reactions: Allergies Allergy/AdvReac Type Severity Reaction Status Date / Time acetaminophen [From Tylenol] Allergy Shortness Verified 04/01/17 13:00 of Breath perfume Allergy Rash Verified 04/01/17 13:00 Home Medications: Home Meds Carvedilol [Coreg] 12.5 mg PO BID 09/23/14 [History] Meclizine [Antivert] 25 mg PO TID PRN 09/23/14 [History] Omeprazole 20 mg PO DAILY 09/23/14 [History] amLODIPine [Norvasc] 5 mg PO DAILY 09/23/14 [History] atorvaSTATin [Lipitor] 20 mg PO BEDTIME 09/23/14 [History] Ferrous Sulfate 325 mg PO TIDMEALS #45 tablet 09/27/14 [Rx] Past Medical History Other HEENT History: both eyes has cataract Cardiovascular History: Reports: Afib Other Cardiovascular History: irregular heartbeat Respiratory History: Reports: Asthma Gastrointestinal History: Reports: GI Bleed Genitourinary History: Reports: UTI, Recurrent Other OB/BYN History: hysterectomy Psychiatric History: Reports: Depression Endocrine/Metabolic History: Reports: Diabetes, Type II - Past Surgical History Other Musculoskeletal Surgeries/Procedures:: left hip surgery, bilateral knee surgery Social & Family History - Family History Family Medical History: Noncontributory - Tobacco Use Smoking Status *Q: Unknown Ever Smoked Second Hand Smoke Exposure: No - Caffeine Use Caffeine Use: Reports: None - Recreational Drug Use Recreational Drug Use: No H&P Review of Systems - Review of Systems: Review Of Systems: ROS reveals no pertinent complaints other than HPI. Exam - Exam Exam: See Below - Vital Signs Vital Signs: Last Vital Signs Temp 96.9 F 04/02/17 08:00 Pulse 88 04/02/17 08:00 Resp 20 04/02/17 08:00 BP 145/56 H 04/02/17 08:00 Pulse Ox 94 L 04/02/17 08:00 Weight: 178 lb 3.194 oz - Exam Quality Assessment: Supplemental Oxygen General: Alert, Cooperative HEENT: Conjunctiva Clear. No: Scleral Icterus Neck: Supple, Trachea Midline Lungs: Decreased Breath Sounds Cardiovascular: Irregular Rhythm GI/Abdominal Exam: Normal Bowel Sounds, Soft, Non-Tender, No Organomegaly, No Distention. No: Guarding, Rebound Rectal (Female) Exam: Deferred Back Exam: Normal Inspection Extremities: Normal Inspection Skin: Warm, Dry, Intact Neurological: Cranial Nerves Intact Neuro Extensive - Mental Status: Alert Neuro Extensive - Motor, Sensory, Reflexes: CN II-XII Intact Psychiatric: Alert, Normal Affect, Normal Mood - Patient Data Lab Results Last 24 hrs: Laboratory Results - last 24 hr 04/01/17 04/02/17 04/02/17 Range/Units 15:45 05:42 05:42 WBC 11.20 H (4.0-11.0) K/uL RBC 3.13 L (4.30-5.90) M/uL Hgb 9.3 L (12.0-16.0) g/dL Hct 27.6 L (36.0-46.0) % MCV 88.2 (80.0-98.0) fL MCH 29.7 (27.0-32.0) pg MCHC 33.7 (31.0-37.0) g/dL RDW Std Deviation 47.8 (28.0-62.0) fl RDW Coeff of Steven 15 (11.0-15.0) % Plt Count 199 (150-400) K/uL MPV 9.80 (7.40-12.00) fL Nucleated RBC % 0.0 /100WBC Nucleated RBCs # 0 K/uL Sodium 141 (136-146) mmol/L Potassium 4.4 (3.5-5.1) mmol/L Chloride 112 H (98-110) mmol/L Carbon Dioxide 20 L (21-31) mmol/L BUN 80 H (6.0-23.0) mg/dL Creatinine 1.0 (0.6-1.5) mg/dL Est Cr Clr Drug Dosing 36.95 mL/min Estimated GFR (MDRD) 52.7 ml/min Glucose 161 H (60-110) mg/dL POC Glucose (60-110) mg/dL Calcium 8.3 L (8.8-10.8) mg/dL Phosphorus 3.5 (2.4-4.7) mg/dL Magnesium 1.7 (1.5-2.3) mEq/L Total Bilirubin 1.0 (0.1-1.5) mg/dL AST 15 (5-40) IU/L ALT 11 (8-54) IU/L Alkaline Phosphatase 52 (40-150) Total Protein 5.3 L (6.0-8.0) g/dL Albumin 2.5 L (3.4-4.8) g/dL Globulin 2.8 (2.0-3.5) g/dL Albumin/Globulin Ratio 0.9 L (1.3-2.8) Urine Color YELLOW Urine Appearance CLOUDY Urine pH 6.0 (5.0-8.0) Ur Specific [place] 1.015 (1.001-1.035) Urine Protein TRACE (NEGATIVE) mg/dL Urine Glucose (UA) NEGATIVE (NEGATIVE) mg/dL Urine Ketones NEGATIVE (NEGATIVE) mg/dL Urine Occult Blood MODERATE (NEGATIVE) Urine Nitrite NEGATIVE (NEGATIVE) Urine Bilirubin NEGATIVE (NEGATIVE) Urine Urobilinogen 0.2 (<2.0) EU/dL Ur Leukocyte Esterase LARGE (NEGATIVE) Urine RBC 0-2 (0-2/HPF) Urine WBC 45-50 (0-5/HPF) Ur Epithelial Cells OCCASIONAL (NONE-FEW) Urine Bacteria 2+ H (NEGATIVE) 04/02/17 Range/Units 06:38 WBC (4.0-11.0) K/uL RBC (4.30-5.90) M/uL Hgb (12.0-16.0) g/dL Hct (36.0-46.0) % MCV (80.0-98.0) fL MCH (27.0-32.0) pg MCHC (31.0-37.0) g/dL RDW Std Deviation (28.0-62.0) fl RDW Coeff of Steven (11.0-15.0) % Plt Count (150-400) K/uL MPV (7.40-12.00) fL Nucleated RBC % /100WBC Nucleated RBCs # K/uL Sodium (136-146) mmol/L Potassium (3.5-5.1) mmol/L Chloride (98-110) mmol/L Carbon Dioxide (21-31) mmol/L BUN (6.0-23.0) mg/dL Creatinine (0.6-1.5) mg/dL Est Cr Clr Drug Dosing mL/min Estimated GFR (MDRD) ml/min Glucose (60-110) mg/dL POC Glucose 151 H (60-110) mg/dL Calcium (8.8-10.8) mg/dL Phosphorus (2.4-4.7) mg/dL Magnesium (1.5-2.3) mEq/L Total Bilirubin (0.1-1.5) mg/dL AST (5-40) IU/L ALT (8-54) IU/L Alkaline Phosphatase (40-150) Total Protein (6.0-8.0) g/dL Albumin (3.4-4.8) g/dL Globulin (2.0-3.5) g/dL Albumin/Globulin Ratio (1.3-2.8) Urine Color Urine Appearance Urine pH (5.0-8.0) Ur Specific [place] (1.001-1.035) Urine Protein (NEGATIVE) mg/dL Urine Glucose (UA) (NEGATIVE) mg/dL Urine Ketones (NEGATIVE) mg/dL Urine Occult Blood (NEGATIVE) Urine Nitrite (NEGATIVE) Urine Bilirubin (NEGATIVE) Urine Urobilinogen (<2.0) EU/dL Ur Leukocyte Esterase (NEGATIVE) Urine RBC (0-2/HPF) Urine WBC (0-5/HPF) Ur Epithelial Cells (NONE-FEW) Urine Bacteria (NEGATIVE) Result Diagrams: 04/02/17 05:42 04/02/17 05:42 Consult PN Assessment/Plan Procedures: Procedures ASSAY OF CK (CPK) (10/03/14) ASSAY OF FERRITIN (09/23/14) ASSAY OF IRON (09/23/14) ASSAY OF LACTIC ACID (09/23/14) ASSAY OF MAGNESIUM (10/03/14) ASSAY OF NATRIURETIC PEPTIDE (10/03/14) ASSAY OF TROPONIN QUANT (09/23/14) ASSAY THYROID STIM HORMONE (09/23/14) AUTOMATED RETICULOCYTE COUNT (09/23/14) BLOOD CULTURE FOR BACTERIA (09/23/14) BLOOD TRANSFUSION SERVICE (09/23/14) BLOOD TYPING SEROLOGIC ABO (09/23/14) BLOOD TYPING SEROLOGIC RH(D) (09/23/14) CHEST X-RAY 1 VIEW FRONTAL (09/23/14) COMPATIBILITY TEST ANTIGLOB (09/23/14) COMPATIBILITY TEST INCUBATE (09/23/14) COMPATIBILITY TEST SPIN (09/23/14) COMPLETE CBC W/AUTO DIFF WBC (10/03/14) COMPREHEN METABOLIC PANEL (10/03/14) CREATINE MB FRACTION (09/23/14) CT HEAD/BRAIN W/O DYE (09/23/14) CT MAXILLOFACIAL W/O DYE (09/23/14) CT NECK SPINE W/O DYE (09/23/14) ELECTROCARDIOGRAM TRACING (10/03/14) EMERGENCY DEPT VISIT (10/03/14) GLUCOSE BLOOD TEST (10/03/14) HYDRATE IV INFUSION ADD-ON (09/23/14) HYDRATION IV INFUSION INIT (10/03/14) METABOLIC PANEL TOTAL CA (10/03/14) MICROBE SUSCEPTIBLE [place] (09/23/14) OCCULT BLD FECES 1-3 TESTS (09/23/14) OT EVALUATION (10/03/14) PROTHROMBIN TIME (09/23/14) PT EVALUATION (10/03/14) RBC ANTIBODY SCREEN (09/23/14) ROUTINE VENIPUNCTURE (10/03/14) THER/PROPH/DIAG INJ IV PUSH (09/23/14) THERAPEUTIC ACTIVITIES (10/03/14) THERAPEUTIC EXERCISES (09/23/14) TTE W/O DOPPLER COMPLETE (10/03/14) URINALYSIS AUTO W/SCOPE (10/03/14) URINE BACTERIA CULTURE (09/23/14) URINE CULTURE/COLONY COUNT (09/23/14) US EXAM ABDO BACK WALL SANTIAGO (09/23/14) X-RAY EXAM OF HIP (10/03/14) X-RAY EXAM OF KNEE 3 (10/03/14) X-RAY EXAM OF LOWER LEG (10/03/14) X-RAY EXAM OF PELVIS (10/03/14) (1) Acute GI bleeding SNOMED Code(s): 60269775 Code(s): K92.2 - GASTROINTESTINAL HEMORRHAGE, UNSPECIFIED Priority: High Current Visit: Yes (2) DNR (do not resuscitate) Priority: High Current Visit: Yes (3) GI bleed SNOMED Code(s): 28348624 Code(s): K92.2 - GASTROINTESTINAL HEMORRHAGE, UNSPECIFIED Priority: High Current Visit: Yes Qualifiers: GI bleed type/associated pathology: melena Qualified Code(s): K92.1 - Melena (4) UTI (urinary tract infection) SNOMED Code(s): 68968474 Code(s): N39.0 - URINARY TRACT INFECTION, SITE NOT SPECIFIED Priority: High Current Visit: Yes Qualifiers: Urinary tract infection type: acute cystitis (5) Arthritis, rheumatoid SNOMED Code(s): 41017603 Code(s): M06.9 - RHEUMATOID ARTHRITIS, UNSPECIFIED Priority: Low Current Visit: Yes Qualifiers: Rheumatoid arthritis location: multiple sites Rheumatoid factor presence: with rheumatoid factor Qualified Code(s): M05.79 - Rheumatoid arthritis with rheumatoid factor of multiple sites without organ or systems involvement (6) Diabetes mellitus SNOMED Code(s): 40967921 Code(s): E11.9 - TYPE 2 DIABETES MELLITUS WITHOUT COMPLICATIONS Priority: Medium Current Visit: Yes Qualifiers: Diabetes mellitus type: type 2 Diabetes mellitus complication status: without complication 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 That was not able to be completed. The patient is a very poor surgical candidate and very high risk. Given her desire for DNR status, I do not feel that endoscopic procedures are appropriate for her. If she remains hemodynamically stable and her hemoglobin doesn't drop, I think she can be treated expectantly with Protonix and Carafate. If she continues to have signs of lower GI bleeding a therapeutic barium enema should still be completed. I have also asked the nurses to send stool samples down for Hemoccult testing to delineate any persistent bleeding.
[2017-04-02] MEDS: Albuterol/Ipratropium 3.0-0.5 MG/3 ML Neb Soln NEB PRN (12:02)
[2017-04-02] MEDS: Sucralfate Suspension 1 GM/10 ML Cup PO SCH ×2 (17:02→21:18)
[2017-04-02] MEDS ORDERED: hydrALAZINE 20 MG/ML SDV IVPUSH STA (22:48)
[2017-04-03] MEDS: Sodium Chloride 0.9% 1,000 ML IV SCH ×2 (02:57→02:58)
[2017-04-03] MEDS: Insulin Aspart 100 Units/ML 3 ML Pen SUBCUT SCH ×3 (06:56→17:16)
[2017-04-03] MEDS: Sucralfate Suspension 1 GM/10 ML Cup PO SCH ×4 (06:56→21:25)
--- NOTE | 2017-04-03 06:59 | PCM.PN ---
- General Info Date of Service: 04/03/17 Admission Dx/Problem (Free Text): Admission Diagnosis/Problem Admission Diagnosis/Problem GI bleed not requiring more than 4 units of blood in 24 hours, ICU, or surgery Subjective Update: Feeling much less fatigued this morning. Pain controlled now that fentanyl patch reapplied. No reported bloody or dark tarry stool. No nausea, vomiting or diarrhea. Feeling very hungry which is much improved from yesterday. Functional Status: Reports: Pain Controlled, Tolerating Diet - Review of Systems General: Reports: Weakness, Fatigue, Appetite. Denies: Fever, Malaise, Chills HEENT: Denies: Headaches, Visual Changes Pulmonary: Reports: Cough, Sputum. Denies: Shortness of Breath, Hemoptysis, Wheezing Cardiovascular: Denies: Chest Pain, Palpitations, Edema Gastrointestinal: Denies: Abdominal Pain, Constipation, Diarrhea, Nausea, Vomiting Genitourinary: Denies: Dysuria, Hematuria Musculoskeletal: Reports: Arm Pain, Leg Pain. Denies: Neck Pain Skin: Denies: Cyanosis Neurological: Denies: Confusion, Dizziness, Headache Psychiatric: Denies: Confusion - Patient Data Vitals - Most Recent: Last Vital Signs Temp 98.8 F 04/03/17 04:00 Pulse 93 04/03/17 04:00 Resp 18 04/03/17 04:00 BP 138/56 L 04/03/17 04:00 Pulse Ox 95 04/03/17 04:00 Weight - Most Recent: 80.83 kg I&O - Last 24 Hours: Intake & Output 04/02/17 04/02/17 04/03/17 14:59 22:59 06:59 Intake Total 20 2696 1420 Output Total 1000 750 Balance 20 2524 910 Lab Results Last 24 Hours: Laboratory Results - last 24 hr 04/02/17 04/02/17 04/03/17 Range/Units 11:55 16:31 06:17 WBC (4.0-11.0) K/uL RBC (4.30-5.90) M/uL Hgb (12.0-16.0) g/dL Hct (36.0-46.0) % MCV (80.0-98.0) fL MCH (27.0-32.0) pg MCHC (31.0-37.0) g/dL RDW Std Deviation (28.0-62.0) fl RDW Coeff of Steven (11.0-15.0) % Plt Count (150-400) K/uL MPV (7.40-12.00) fL Nucleated RBC % /100WBC Nucleated RBCs # K/uL POC Glucose 205 H 292 H 127 H (60-110) mg/dL 04/03/17 Range/Units 06:22 WBC 11.18 H (4.0-11.0) K/uL RBC 2.69 L (4.30-5.90) M/uL Hgb 8.0 L (12.0-16.0) g/dL Hct 24.2 L (36.0-46.0) % MCV 90.0 (80.0-98.0) fL MCH 29.7 (27.0-32.0) pg MCHC 33.1 (31.0-37.0) g/dL RDW Std Deviation 50.2 (28.0-62.0) fl RDW Coeff of Steven 15 (11.0-15.0) % Plt Count 183 (150-400) K/uL MPV 9.30 (7.40-12.00) fL Nucleated RBC % 0.0 /100WBC Nucleated RBCs # 0 K/uL POC Glucose (60-110) mg/dL Med Orders - Current: Current Medications Albuterol/Ipratropium (Duoneb 3.0-0.5 Mg/3 Ml) 3 ml NEB Q6H PRN PRN Reason: Shortness Of Breath/wheezing Last Admin: 04/02/17 12:02 Dose: 3 ml Fentanyl (Duragesic) 25 mcg TRDERM Q72H [facility] Sodium Chloride (Normal Saline) 1,000 mls @ 125 mls/hr IV STAT [facility] Last Infusion: 04/01/17 21:46 Dose: Infused Sodium Chloride (Normal Saline) 1,000 mls @ 125 mls/hr IV ASDIRECTED [facility] Last Admin: 04/03/17 02:58 Dose: 125 mls/hr Levofloxacin/Dextrose 750 mg/ (Premix) 150 mls @ 100 mls/hr IV Q48H [facility] Insulin Aspart (Novolog) 0 unit SUBCUT TIDAC GEM PRN Reason: Protocol Last Admin: 04/03/17 06:56 Dose: Not Given Morphine Sulfate (Morphine) 2 mg IVPUSH Q2H PRN PRN Reason: Pain (severe 7-10) Last Admin: 04/03/17 03:06 Dose: 2 mg Ondansetron HCl (Zofran Odt) 4 mg PO Q4H PRN PRN Reason: nausea, able to take PO Ondansetron HCl (Zofran) 4 mg IVPUSH Q4H PRN PRN Reason: Pain Pantoprazole Sodium (Protonix Iv) 80 mg IVPUSH BID [facility] Last Admin: 04/02/17 21:18 Dose: 80 mg Polyethylene Glycol (Miralax) 17 gm PO DAILY PRN PRN Reason: Constipation Sodium Chloride (Saline Flush) 10 ml FLUSH ASDIRECTED PRN PRN Reason: Keep Vein Open Last Admin: 04/01/17 13:47 Dose: 10 ml Sodium Chloride (Saline Flush) 2.5 ml FLUSH ASDIRECTED PRN PRN Reason: Keep Vein Open Last Admin: 04/01/17 13:47 Dose: 2.5 ml Sucralfate (Carafate) 1 gm PO QIDACANDBED [facility] Last Admin: 04/03/17 06:56 Dose: 1 gm Discontinued Medications Calcium Carbonate/Glycine (Tums) 1,000 mg PO ONETIME ONE Stop: 04/02/17 07:14 Last Admin: 04/02/17 08:28 Dose: Not Given Hydralazine HCl (Apresoline) 10 mg IVPUSH ONETIME STA Stop: 04/02/17 22:49 Last Admin: 04/02/17 23:19 Dose: 10 mg Pantoprazole Sodium 80 mg/ (Sodium Chloride) 100 mls @ 10 mls/hr IV .Continuous [facility] Pantoprazole Sodium 80 mg/ (Sodium Chloride) 50 mls @ 5 mls/hr IV .Continuous [facility] Stop: 04/02/17 00:01 Last Admin: 04/01/17 14:50 Dose: 5 mls/hr Levofloxacin/Dextrose 750 mg/ (Premix) 150 mls @ 100 mls/hr IV DAILY ONE Stop: 04/01/17 18:34 Last Admin: 04/01/17 17:40 Dose: 100 mls/hr Pantoprazole Sodium (Protonix Iv) 80 mg IVPUSH .BOLUS ONE Stop: 04/01/17 13:03 Last Admin: 04/01/17 13:47 Dose: 80 mg - Exam Quality Assessment: DVT Prophylaxis General: Alert, Oriented HEENT: Pupils Equal, Pupils Reactive, EOMI, Mucous Membr. Moist/[place] Neck: Supple Lungs: Clear to Auscultation, Normal Respiratory Effort Cardiovascular: Regular Rate, Regular Rhythm GI/Abdominal Exam: Normal Bowel Sounds, Soft, Non-Tender, No Organomegaly, No Distention Back Exam: Normal Inspection Extremities: Normal Inspection, No Pedal Edema, Normal Capillary Refill, Leg Pain, Limited Range of Motion. No: Jayne's Sign Peripheral Pulses: 2+: Radial (L), Radial (R), Posterior Tibial (L), Posterior Tibial (R), Dorsalis Pedis (L), Dorsalis Pedis (R) Skin: Warm, Dry, Intact Neurological: No New Focal Deficit Psy/Mental Status: Alert, Normal Affect, Normal Mood - Problem List & Annotations (1) Acute GI bleeding SNOMED Code(s): 44395815 Code(s): K92.2 - GASTROINTESTINAL HEMORRHAGE, UNSPECIFIED Status: Acute Priority: High Current Visit: Yes (2) Hypertension SNOMED Code(s): 32779361 Code(s): I10 - ESSENTIAL (PRIMARY) HYPERTENSION Status: Chronic Priority : Medium Current Visit: Yes Qualifiers: Hypertension type: essential hypertension Qualified Code(s): I10 - Essential (primary) hypertension (3) UTI (urinary tract infection) SNOMED Code(s): 92176613 Code(s): N39.0 - URINARY TRACT INFECTION, SITE NOT SPECIFIED Status: Acute Priority: High Current Visit: Yes Qualifiers: Urinary tract infection type: acute cystitis (4) Arthritis, rheumatoid SNOMED Code(s): 61545091 Code(s): M06.9 - RHEUMATOID ARTHRITIS, UNSPECIFIED Status: Chronic Priority: Low Current Visit: Yes Qualifiers: Rheumatoid arthritis location: multiple sites Rheumatoid factor presence: with rheumatoid factor Qualified Code(s): M05.79 - Rheumatoid arthritis with rheumatoid factor of multiple sites without organ or systems involvement (5) Diabetes mellitus SNOMED Code(s): 05161532 Code(s): E11.9 - TYPE 2 DIABETES MELLITUS WITHOUT COMPLICATIONS Status: Chronic Priority: Medium Current Visit: Yes Qualifiers: Diabetes mellitus type: type 2 Diabetes mellitus complication status: with unspecified complications 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: unspecified fpc insulin use status Qualified Code(s): E11.8 - Type 2 diabetes mellitus with unspecified complications - Problem List Review Problem List Initiated/Reviewed/Updated: Yes - My Orders Last 24 Hours: My Active Orders 04/02/17 07:30 Insulin Aspart [NovoLOG] See Protocol SUBCUT TIDAC 04/02/17 09:00 Pantoprazole [ProTONIX IV] 80 mg IVPUSH BID 04/02/17 12:51 OCCULT BLOOD DIAGNOSTIC [OP] Routine 04/02/17 17:00 Sucralfate [Carafate] 1 gm PO QIDACANDBED 04/02/17 Lunch Clear Liquid Diet [DIET] 04/03/17 06:22 COMPREHENSIVE METABOLIC PN,CMP [CHEM] AM 04/03/17 08:00 fentaNYL [Duragesic] 25 mcg TRDERM Q72H 04/03/17 18:00 Levofloxacin/Dextrose 5%-Water [Levaquin in D5W 750 MG/150 ML] 750 mg Premix Bag 1 bag IV Q48H 04/04/17 05:11 CBC W/O DIFF,HEMOGRAM [HEME] AM COMPREHENSIVE METABOLIC PN,CMP [CHEM] AM 04/05/17 05:11 CBC W/O DIFF,HEMOGRAM [HEME] AM COMPREHENSIVE METABOLIC PN,CMP [CHEM] AM - Plan Plan:: 86-year-old female admitted for anemia hemoglobin 7.7 suspected acute GI bleed found to have UTI with past medical history of hypertension, hyperlipidemia, DM2 , rheumatoid arthritis, GERD. Suspected acute GI bleed: Hgb decreased today form 9.3 to 8.0. I suspect this is a delusional effect from IVF resus but will repeat H&H in afternoon. No blood stools since admission. Will slowly advance diet today and add carafate. Dr. Zimmer surgery consulted see note. Continue Protonix for 72 hours. Decrease IVF to 75 NS monitor closely for vol. overload. UTI: Continued minimal Leukocytosis of 11k this am. Klebsiella PNA urine culture pansensitive expect Ampicillin. Cont. levofloxacin 750 mg IV day 3. No fever Hypertension: Did have some hypertensive episodes treated with hydralazine prior to starting home meds while npo. Cont. to monitor closely. Hyperlipidemia: Cont. home meds. DM2: ISS low TIDAC Rheumatoid arthritis: Patient does have a 25 g fentanyl patch which is continued IV 2 mg Morphine for breakthrough. GERD: Most likely etiology of suspected GI bleed. Currently treated with Protonix may need increased dosage when goes home. Not a good candidate for anesthesia. VTE proph: SCD no pharmacologic secondary to acute GI bleed. Distal: 1-2 days pending
[2017-04-03 07:08] LABS: CHLORIDE,CL 117 mmol/L (98-110); SODIUM,NA 143 mmol/L (136-146)
[2017-04-03] MEDS: Pantoprazole 40 MG Vial IVPUSH SCH ×2 (08:11→21:26)
[2017-04-03] MEDS: fentaNYL 25 MCG/HR Transdermal Patch TRDERM SCH (08:12)
[2017-04-03] MEDS: Levofloxacin/Dextrose 5%-Water 750 MG in Premix Bag 1 BAG IV SCH (08:36)
[2017-04-03] MEDS ORDERED: Potassium Chloride 20 MEQ Tab.ER PO ONE (09:49)
[2017-04-03] MEDS: hydrALAZINE 20 MG/ML SDV IVPUSH PRN (09:51)
[2017-04-03] MEDS ORDERED: Magnesium Hydroxide 400 MG/5 ML Susp 30 ML Cup PO PRN (09:52)
[2017-04-03] MEDS ORDERED: Sodium Chloride 0.9% 1,000 ML IV SCH (10:00)
[2017-04-03] MEDS: Carvedilol 12.5 MG Tab PO SCH ×2 (10:32→21:25)
[2017-04-03] MEDS: Albuterol/Ipratropium 3.0-0.5 MG/3 ML Neb Soln NEB PRN (11:38)
[2017-04-03] MEDS: Ferrous Sulfate 325 MG Tab PO SCH ×2 (11:59→16:44)
--- NOTE | 2017-04-03 14:19 | PCM.SN ---
- Free Text/Narrative Note: Called to start IV. 22g left upper arm/chest with 22g angiocath 3rd attempt. Flushes easily. Secured with tegaderm and tape.
[2017-04-03] MEDS ORDERED: Albuterol/Ipratropium 3.0-0.5 MG/3 ML Neb Soln NEB ONE (15:00)
[2017-04-03] MEDS: Nystatin Topical Powder 15 GM Bottle TOP SCH ×2 (17:42→22:41)
[2017-04-03] MEDS ORDERED: Furosemide 40 MG/4 ML VIAL IVPUSH ONE (19:00)
[2017-04-04] MEDS: Nystatin Topical Powder 15 GM Bottle TOP SCH ×3 (06:27→21:02)
[2017-04-04] MEDS: Sucralfate Suspension 1 GM/10 ML Cup PO SCH ×4 (06:33→20:48)
[2017-04-04] MEDS: Insulin Aspart 100 Units/ML 3 ML Pen SUBCUT SCH ×3 (06:33→18:12)
[2017-04-04 06:41] LABS: CHLORIDE,CL 117 mmol/L (98-110); SODIUM,NA 142 mmol/L (136-146)
--- NOTE | 2017-04-04 08:04 | PCM.PN ---
- General Info Date of Service: 04/04/17 Admission Dx/Problem (Free Text): Admission Diagnosis/Problem Admission Diagnosis/Problem GI bleed Subjective Update: Patient alert this morning, having generalized pain all over from RA. No abdominal pain or BMs today. No urinary troubles. Reports she is starving and wants more than broth. No chest pain or SOB. Functional Status: Reports: Pain Controlled (unless moved a lot), Tolerating Diet. Denies: Ambulating - Review of Systems General: Reports: No Symptoms. Denies: Fever Pulmonary: Reports: Cough. Denies: Shortness of Breath, Sputum Cardiovascular: Reports: Edema (some noted to bilateral upper arms. ). Denies: Chest Pain Gastrointestinal: Reports: Melena. Denies: Abdominal Pain, Nausea, Vomiting Genitourinary: Reports: No Symptoms. Denies: Dysuria, Frequency, Burning Neurological: Reports: No Symptoms. Denies: Confusion Psychiatric: Reports: No Symptoms. Denies: Confusion - Patient Data Vitals - Most Recent: Last Vital Signs Temp 98.4 F 04/04/17 03:37 Pulse 85 04/04/17 03:37 Resp 20 04/04/17 03:37 BP 166/85 H 04/04/17 03:37 Pulse Ox 98 04/04/17 03:37 Weight - Most Recent: 80.83 kg I&O - Last 24 Hours: Intake & Output 04/03/17 04/04/17 04/04/17 22:59 06:59 14:59 Intake Total 1220 590 Output Total 1850 Balance 1220 -1260 Lab Results Last 24 Hours: Laboratory Results - last 24 hr 04/03/17 04/03/17 04/03/17 Range/Units 11:18 12:31 16:50 WBC (4.0-11.0) K/uL RBC (4.30-5.90) M/uL Hgb 7.7 L (12.0-16.0) g/dL Hct 23.6 L (36.0-46.0) % MCV (80.0-98.0) fL MCH (27.0-32.0) pg MCHC (31.0-37.0) g/dL RDW Std Deviation (28.0-62.0) fl RDW Coeff of Steven (11.0-15.0) % Plt Count (150-400) K/uL MPV (7.40-12.00) fL Nucleated RBC % /100WBC Nucleated RBCs # K/uL Sodium (136-146) mmol/L Potassium (3.5-5.1) mmol/L Chloride (98-110) mmol/L Carbon Dioxide (21-31) mmol/L BUN (6.0-23.0) mg/dL Creatinine (0.6-1.5) mg/dL Est Cr Clr Drug Dosing mL/min Estimated GFR (MDRD) ml/min Glucose (60-110) mg/dL POC Glucose 227 H 195 H (60-110) mg/dL Calcium (8.8-10.8) mg/dL Total Bilirubin (0.1-1.5) mg/dL AST (5-40) IU/L ALT (8-54) IU/L Alkaline Phosphatase (40-150) Total Protein (6.0-8.0) g/dL Albumin (3.4-4.8) g/dL Globulin (2.0-3.5) g/dL Albumin/Globulin Ratio (1.3-2.8) 04/04/17 04/04/17 04/04/17 Range/Units 06:05 06:05 06:32 WBC 8.81 (4.0-11.0) K/uL RBC 3.42 L (4.30-5.90) M/uL Hgb 10.2 L (12.0-16.0) g/dL Hct 30.8 L (36.0-46.0) % MCV 90.1 (80.0-98.0) fL MCH 29.8 (27.0-32.0) pg MCHC 33.1 (31.0-37.0) g/dL RDW Std Deviation 50.5 (28.0-62.0) fl RDW Coeff of Steven 16 H (11.0-15.0) % Plt Count 149 L (150-400) K/uL MPV 9.00 (7.40-12.00) fL Nucleated RBC % 0.0 /100WBC Nucleated RBCs # 0 K/uL Sodium 142 (136-146) mmol/L Potassium 3.7 (3.5-5.1) mmol/L Chloride 117 H (98-110) mmol/L Carbon Dioxide 19 L (21-31) mmol/L BUN 24 H (6.0-23.0) mg/dL Creatinine 0.7 (0.6-1.5) mg/dL Est Cr Clr Drug Dosing 52.79 mL/min Estimated GFR (MDRD) > 60.0 ml/min Glucose 124 H (60-110) mg/dL POC Glucose 114 H (60-110) mg/dL Calcium 8.2 L (8.8-10.8) mg/dL Total Bilirubin 0.9 (0.1-1.5) mg/dL AST 17 (5-40) IU/L ALT 11 (8-54) IU/L Alkaline Phosphatase 49 (40-150) Total Protein 5.2 L (6.0-8.0) g/dL Albumin 2.5 L (3.4-4.8) g/dL Globulin 2.7 (2.0-3.5) g/dL Albumin/Globulin Ratio 0.9 L (1.3-2.8) Zach Results Last 24 Hours: Microbiology 04/01/17 15:45 Urine Culture - Final Urine, Clean Catch Klebsiella Pneumoniae Normal Urogenital Georgette Med Orders - Current: Current Medications Albuterol/Ipratropium (Duoneb 3.0-0.5 Mg/3 Ml) 3 ml NEB Q6H PRN PRN Reason: Shortness Of Breath/wheezing Last Admin: 04/03/17 11:38 Dose: 3 ml Carvedilol (Coreg) 12.5 mg PO BID [facility] Last Admin: 04/03/17 21:25 Dose: 12.5 mg Fentanyl (Duragesic) 25 mcg TRDERM Q72H [facility] Last Admin: 04/03/17 08:12 Dose: 25 mcg Ferrous Sulfate (Ferrous Sulfate) 325 mg PO TIDMEALS [facility] Last Admin: 04/03/17 16:44 Dose: 325 mg Hydralazine HCl (Apresoline) 10 mg IVPUSH Q6H PRN PRN Reason: SBP>170mmHg Last Admin: 04/03/17 09:51 Dose: 10 mg Levofloxacin/Dextrose 750 mg/ (Premix) 150 mls @ 100 mls/hr IV Q24H [facility] Last Admin: 04/03/17 08:36 Dose: 100 mls/hr Sodium Chloride (Normal Saline) 1,000 mls @ 75 mls/hr IV ASDIRECTED [facility] Last Admin: 04/04/17 02:42 Dose: 75 mls/hr Insulin Aspart (Novolog) 0 unit SUBCUT TIDAC [facility] PRN Reason: Protocol Last Admin: 04/04/17 06:33 Dose: Not Given Magnesium Hydroxide (Milk Of Magnesia) 30 ml PO . NEEDED PRN PRN Reason: Constipation Morphine Sulfate (Morphine) 2 mg IVPUSH Q2H PRN PRN Reason: Pain (severe 7-10) Last Admin: 04/03/17 03:06 Dose: 2 mg Nystatin (Nystop) 0 gm TOP TID [facility] Last Admin: 04/04/17 06:27 Dose: 1 dose Ondansetron HCl (Zofran Odt) 4 mg PO Q4H PRN PRN Reason: nausea, able to take PO Ondansetron HCl (Zofran) 4 mg IVPUSH Q4H PRN PRN Reason: Pain Pantoprazole Sodium (Protonix Iv) 80 mg IVPUSH BID [facility] Last Admin: 04/03/17 21:26 Dose: 80 mg Polyethylene Glycol (Miralax) 17 gm PO DAILY PRN PRN Reason: Constipation Sodium Chloride (Saline Flush) 10 ml FLUSH ASDIRECTED PRN PRN Reason: Keep Vein Open Last Admin: 04/01/17 13:47 Dose: 10 ml Sodium Chloride (Saline Flush) 2.5 ml FLUSH ASDIRECTED PRN PRN Reason: Keep Vein Open Last Admin: 04/01/17 13:47 Dose: 2.5 ml Sucralfate (Carafate) 1 gm PO QIDACANDBED [facility] Last Admin: 04/04/17 06:33 Dose: 1 gm Discontinued Medications Albuterol/Ipratropium (Duoneb 3.0-0.5 Mg/3 Ml) 3 ml NEB ONETIME ONE Stop: 04/03/17 15:01 Last Admin: 04/03/17 15:00 Dose: 3 ml Calcium Carbonate/Glycine (Tums) 1,000 mg PO ONETIME ONE Stop: 04/02/17 07:14 Last Admin: 04/02/17 08:28 Dose: Not Given Furosemide (Lasix) 20 mg IVPUSH NOW ONE Stop: 04/03/17 19:01 Last Admin: 04/03/17 19:09 Dose: 20 mg Hydralazine HCl (Apresoline) 10 mg IVPUSH ONETIME STA Stop: 04/02/17 22:49 Last Admin: 04/02/17 23:19 Dose: 10 mg Pantoprazole Sodium 80 mg/ (Sodium Chloride) 100 mls @ 10 mls/hr IV .Continuous [facility] Sodium Chloride (Normal Saline) 1,000 mls @ 125 mls/hr IV STAT [facility] Last Infusion: 04/01/17 21:46 Dose: Infused Pantoprazole Sodium 80 mg/ (Sodium Chloride) 50 mls @ 5 mls/hr IV .Continuous [facility] Stop: 04/02/17 00:01 Last Admin: 04/01/17 14:50 Dose: 5 mls/hr Sodium Chloride (Normal Saline) 1,000 mls @ 125 mls/hr IV ASDIRECTED [facility] Last Admin: 04/03/17 02:58 Dose: 125 mls/hr Levofloxacin/Dextrose 750 mg/ (Premix) 150 mls @ 100 mls/hr IV DAILY ONE Stop: 04/01/17 18:34 Last Admin: 04/01/17 17:40 Dose: 100 mls/hr Pantoprazole Sodium (Protonix Iv) 80 mg IVPUSH .BOLUS ONE Stop: 04/01/17 13:03 Last Admin: 04/01/17 13:47 Dose: 80 mg Potassium Chloride (Klor-Con M20) 40 meq PO ONETIME ONE Stop: 04/03/17 09:50 Last Admin: 04/03/17 10:31 Dose: 40 meq - Exam Quality Assessment: Urine Catheter, DVT Prophylaxis (SCDs only) General: Alert, Cooperative, No Acute Distress Neck: Supple Lungs: Clear to Auscultation, Normal Respiratory Effort, Other (some bronchial breath sounds noted clears with cough.) Cardiovascular: Regular Rate, Regular Rhythm, No Murmurs GI/Abdominal Exam: Normal Bowel Sounds, Soft, Non-Tender, Other (upon rectal exam, patient had large melanotic, maroon stool, no hemorrhoids noted. ) Extremities: Normal Inspection, No Pedal Edema, Other (edema to upper arms, not pitting. ). No: Normal Range of Motion (limited due to RA and pain) Neurological: No New Focal Deficit Psy/Mental Status: Alert, Normal Affect, Normal Mood - Problem List & Annotations (1) Acute GI bleeding SNOMED Code(s): 38807576 Code(s): K92.2 - GASTROINTESTINAL HEMORRHAGE, UNSPECIFIED Status: Acute Priority: High Current Visit: Yes (2) UTI (urinary tract infection) SNOMED Code(s): 34816023 Code(s): N39.0 - URINARY TRACT INFECTION, SITE NOT SPECIFIED Status: Acute Priority: High Current Visit: Yes Qualifiers: Urinary tract infection type: acute cystitis (3) Arthritis, rheumatoid SNOMED Code(s): 47309037 Code(s): M06.9 - RHEUMATOID ARTHRITIS, UNSPECIFIED Status: Chronic Priority: Low Current Visit: Yes Qualifiers: Rheumatoid arthritis location: multiple sites Rheumatoid factor presence: with rheumatoid factor Qualified Code(s): M05.79 - Rheumatoid arthritis with rheumatoid factor of multiple sites without organ or systems involvement (4) Diabetes mellitus SNOMED Code(s): 45747518 Code(s): E11.9 - TYPE 2 DIABETES MELLITUS WITHOUT COMPLICATIONS Status: Chronic Priority: Medium Current Visit: Yes Qualifiers: Diabetes mellitus type: type 2 Diabetes mellitus complication status: with unspecified complications Diabetes mellitus intermediate insulin use: unspecified intermediate insulin use status Qualified Code(s): E11.8 - Type 2 diabetes mellitus with unspecified complications (5) Hypertension SNOMED Code(s): 98383476 Code(s): I10 - ESSENTIAL (PRIMARY) HYPERTENSION Status: Chronic Priority : Medium Current Visit: Yes Qualifiers: Hypertension type: essential hypertension Qualified Code(s): I10 - Essential (primary) hypertension (6) Atrial fibrillation SNOMED Code(s): 41833338 Code(s): I48.91 - UNSPECIFIED ATRIAL FIBRILLATION Status: Acute Current Visit: No - Problem List Review Problem List Initiated/Reviewed/Updated: Yes - Plan Plan:: 86-year-old female admitted for anemia hemoglobin 7.7 suspected acute GI bleed found to have UTI with past medical history of hypertension, hyperlipidemia, DM2 , rheumatoid arthritis, GERD. 1. Acute GI bleed: Hgb 10.2 this morning, after 2 units of PRBCs last evening after repeat HH 7.7 yesterday evening. Upon rectal exam today, large melanotic and maroon stool noted Hemoccult obtained and positive. Will order therapeutic barium enema as recommended per Dr. Zimmer surgery, for lower GI bleeding. Continue Protonix for 72 hours. Stop IVF today, some edema to upper arms. 2. UTI: Improving, leukocytosis resolved this morning. Klebsiella PNA urine culture pansensitive expect Ampicillin. Cont. Continue Levofloxacin 750 mg IV daily 3. Hypertension: Continued to be elevated today, continue home meds. Given dose of Lasix last evening with blood. May consider another dose today. Cont. to monitor closely. 4. Hyperlipidemia: Stable. Cont. home meds. 5. DM2: Stable. ISS low TIDAC 6. Rheumatoid arthritis: Pain ok, worse with movement. Continue Fentanyl patch and Morphine for breakthrough. 7. GERD: Continue Protonix may need increased dosage when goes home. Not a good candidate for anesthesia. VTE prophylaxis: SCD no pharmacologic secondary to acute GI bleed. Dispo: 2-3 days pending improvement
[2017-04-04] MEDS: Ferrous Sulfate 325 MG Tab PO SCH ×3 (09:38→16:49)
[2017-04-04] MEDS: Levofloxacin/Dextrose 5%-Water 750 MG in Premix Bag 1 BAG IV SCH (09:39)
[2017-04-04] MEDS: Carvedilol 12.5 MG Tab PO SCH ×2 (09:39→20:48)
[2017-04-04] MEDS: hydrALAZINE 20 MG/ML SDV IVPUSH PRN ×2 (09:42→19:00)
[2017-04-04] MEDS: Pantoprazole 40 MG Vial IVPUSH SCH ×2 (10:15→20:48)
--- NOTE | 2017-04-04 16:05 | CR ---
EXAMINATION: Single contrast barium enema HISTORY: Anemia COMPARISON: CT dated 04/01/2017 TECHNIQUE: Standard single contrast barium minimal was attempted. FINDINGS/IMPRESSION: The balloon was inflated within the rectum, however following multiple attempts contrast would leak around the balloon. Contrast was unable to be passed beyond the sigmoid region. A few diverticula are noted, however the overall the procedure was likely insufficient for therapeutic barium enema.
[2017-04-04] MEDS: Albuterol/Ipratropium 3.0-0.5 MG/3 ML Neb Soln NEB PRN (18:36)
[2017-04-05 06:05] LABS: CHLORIDE,CL 115 mmol/L (98-110); SODIUM,NA 141 mmol/L (136-146)
[2017-04-05] MEDS: Sucralfate Suspension 1 GM/10 ML Cup PO SCH ×4 (06:40→20:31)
[2017-04-05] MEDS: Nystatin Topical Powder 15 GM Bottle TOP SCH ×3 (06:41→22:13)
[2017-04-05] MEDS: Insulin Aspart 100 Units/ML 3 ML Pen SUBCUT SCH ×3 (06:41→17:31)
--- NOTE | 2017-04-05 08:52 | PCM.PN ---
- General Info Date of Service: 04/05/17 Admission Dx/Problem (Free Text): Admission Diagnosis/Problem Admission Diagnosis/Problem GI bleed Subjective Update: Doing ok this morning, no pain. No chest pain or SOB. reports some intermittent SOB but otherwise ok. Denies abdominal pain and no BMs today. Explained to her the barium enema likely was effective due to leaking of barium when it was attempted to be instilled. Will monitor today. Functional Status: Reports: Pain Controlled, Tolerating Diet, Urinating. Denies : Ambulating - Review of Systems HEENT: Reports: No Symptoms. Denies: Headaches, Sore Throat, Rhinitis, Visual Changes Pulmonary: Reports: Shortness of Breath (intermittent). Denies: Cough Cardiovascular: Reports: No Symptoms. Denies: Chest Pain, Palpitations, Edema Gastrointestinal: Reports: No Symptoms. Denies: Abdominal Pain, Nausea, Vomiting Genitourinary: Reports: No Symptoms. Denies: Dysuria, Frequency, Burning Neurological: Reports: No Symptoms. Denies: Confusion Psychiatric: Reports: No Symptoms. Denies: Confusion - Patient Data Vitals - Most Recent: Last Vital Signs Temp 98.7 F 04/05/17 04:00 Pulse 80 04/05/17 04:00 Resp 20 04/05/17 04:00 BP 174/82 H 04/05/17 04:00 Pulse Ox 92 L 04/05/17 04:00 Weight - Most Recent: 80.83 kg I&O - Last 24 Hours: Intake & Output 04/04/17 04/05/17 04/05/17 22:59 06:59 14:59 Intake Total 990 50 Output Total 1180 800 Balance -190 -750 Lab Results Last 24 Hours: Laboratory Results - last 24 hr 04/04/17 04/04/17 04/04/17 Range/Units 12:06 12:18 17:14 WBC (4.0-11.0) K/uL RBC (4.30-5.90) M/uL Hgb 10.5 L (12.0-16.0) g/dL Hct 30.9 L (36.0-46.0) % MCV (80.0-98.0) fL MCH (27.0-32.0) pg MCHC (31.0-37.0) g/dL RDW Std Deviation (28.0-62.0) fl RDW Coeff of Steven (11.0-15.0) % Plt Count (150-400) K/uL MPV (7.40-12.00) fL Nucleated RBC % /100WBC Nucleated RBCs # K/uL Sodium (136-146) mmol/L Potassium (3.5-5.1) mmol/L Chloride (98-110) mmol/L Carbon Dioxide (21-31) mmol/L BUN (6.0-23.0) mg/dL Creatinine (0.6-1.5) mg/dL Est Cr Clr Drug Dosing mL/min Estimated GFR (MDRD) ml/min Glucose (60-110) mg/dL POC Glucose 150 H 156 H (60-110) mg/dL Calcium (8.8-10.8) mg/dL Total Bilirubin (0.1-1.5) mg/dL AST (5-40) IU/L ALT (8-54) IU/L Alkaline Phosphatase (40-150) Total Protein (6.0-8.0) g/dL Albumin (3.4-4.8) g/dL Globulin (2.0-3.5) g/dL Albumin/Globulin Ratio (1.3-2.8) 04/05/17 04/05/17 04/05/17 Range/Units 05:20 05:20 05:56 WBC 9.56 (4.0-11.0) K/uL RBC 3.37 L (4.30-5.90) M/uL Hgb 9.9 L (12.0-16.0) g/dL Hct 30.3 L (36.0-46.0) % MCV 89.9 (80.0-98.0) fL MCH 29.4 (27.0-32.0) pg MCHC 32.7 (31.0-37.0) g/dL RDW Std Deviation 51.0 (28.0-62.0) fl RDW Coeff of Steven 16 H (11.0-15.0) % Plt Count 136 L (150-400) K/uL MPV 9.00 (7.40-12.00) fL Nucleated RBC % 0.0 /100WBC Nucleated RBCs # 0 K/uL Sodium 141 (136-146) mmol/L Potassium 3.5 (3.5-5.1) mmol/L Chloride 115 H (98-110) mmol/L Carbon Dioxide 21 (21-31) mmol/L BUN 21 (6.0-23.0) mg/dL Creatinine 0.8 (0.6-1.5) mg/dL Est Cr Clr Drug Dosing 46.19 mL/min Estimated GFR (MDRD) > 60.0 ml/min Glucose 129 H (60-110) mg/dL POC Glucose 109 (60-110) mg/dL Calcium 8.0 L (8.8-10.8) mg/dL Total Bilirubin 1.0 (0.1-1.5) mg/dL AST 13 (5-40) IU/L ALT 9 (8-54) IU/L Alkaline Phosphatase 49 (40-150) Total Protein 4.5 L (6.0-8.0) g/dL Albumin 2.3 L (3.4-4.8) g/dL Globulin 2.2 (2.0-3.5) g/dL Albumin/Globulin Ratio 1.1 L (1.3-2.8) Zach Results Last 24 Hours: Microbiology 04/04/17 11:20 Stool Occult Blood (ZACH) - Final Stool / Feces - Stool, Aspirate POSITIVE OCCULT BLOOD Med Orders - Current: Current Medications Albuterol/Ipratropium (Duoneb 3.0-0.5 Mg/3 Ml) 3 ml NEB Q6H PRN PRN Reason: Shortness Of Breath/wheezing Last Admin: 04/04/17 18:36 Dose: 3 ml Carvedilol (Coreg) 12.5 mg PO BID [facility] Last Admin: 04/04/17 20:48 Dose: 12.5 mg Fentanyl (Duragesic) 25 mcg TRDERM Q72H [facility] Last Admin: 04/03/17 08:12 Dose: 25 mcg Ferrous Sulfate (Ferrous Sulfate) 325 mg PO TIDMEALS [facility] Last Admin: 04/04/17 16:49 Dose: 325 mg Hydralazine HCl (Apresoline) 10 mg IVPUSH Q6H PRN PRN Reason: SBP>170mmHg Last Admin: 04/04/17 19:00 Dose: 10 mg Levofloxacin/Dextrose 750 mg/ (Premix) 150 mls @ 100 mls/hr IV Q24H [facility] Last Admin: 04/04/17 09:39 Dose: 100 mls/hr Insulin Aspart (Novolog) 0 unit SUBCUT TIDAC [facility] PRN Reason: Protocol Last Admin: 04/05/17 06:41 Dose: Not Given Magnesium Hydroxide (Milk Of Magnesia) 30 ml PO . NEEDED PRN PRN Reason: Constipation Morphine Sulfate (Morphine) 2 mg IVPUSH Q2H PRN PRN Reason: Pain (severe 7-10) Last Admin: 04/03/17 03:06 Dose: 2 mg Nystatin (Nystop) 0 gm TOP TID [facility] Last Admin: 04/05/17 06:41 Dose: 1 applic Ondansetron HCl (Zofran Odt) 4 mg PO Q4H PRN PRN Reason: nausea, able to take PO Ondansetron HCl (Zofran) 4 mg IVPUSH Q4H PRN PRN Reason: Pain Pantoprazole Sodium (Protonix Iv) 80 mg IVPUSH BID [facility] Last Admin: 04/04/17 20:48 Dose: 80 mg Polyethylene Glycol (Miralax) 17 gm PO DAILY PRN PRN Reason: Constipation Sodium Chloride (Saline Flush) 10 ml FLUSH ASDIRECTED PRN PRN Reason: Keep Vein Open Last Admin: 04/01/17 13:47 Dose: 10 ml Sodium Chloride (Saline Flush) 2.5 ml FLUSH ASDIRECTED PRN PRN Reason: Keep Vein Open Last Admin: 04/01/17 13:47 Dose: 2.5 ml Sucralfate (Carafate) 1 gm PO QIDACANDBED [facility] Last Admin: 04/05/17 06:40 Dose: 1 gm Discontinued Medications Albuterol/Ipratropium (Duoneb 3.0-0.5 Mg/3 Ml) 3 ml NEB ONETIME ONE Stop: 04/03/17 15:01 Last Admin: 04/03/17 15:00 Dose: 3 ml Calcium Carbonate/Glycine (Tums) 1,000 mg PO ONETIME ONE Stop: 04/02/17 07:14 Last Admin: 04/02/17 08:28 Dose: Not Given Furosemide (Lasix) 20 mg IVPUSH NOW ONE Stop: 04/03/17 19:01 Last Admin: 04/03/17 19:09 Dose: 20 mg Hydralazine HCl (Apresoline) 10 mg IVPUSH ONETIME STA Stop: 04/02/17 22:49 Last Admin: 04/02/17 23:19 Dose: 10 mg Pantoprazole Sodium 80 mg/ (Sodium Chloride) 100 mls @ 10 mls/hr IV .Continuous GEM Sodium Chloride (Normal Saline) 1,000 mls @ 125 mls/hr IV STAT GEM Last Infusion: 04/01/17 21:46 Dose: Infused Pantoprazole Sodium 80 mg/ (Sodium Chloride) 50 mls @ 5 mls/hr IV .Continuous GEM Stop: 04/02/17 00:01 Last Admin: 04/01/17 14:50 Dose: 5 mls/hr Sodium Chloride (Normal Saline) 1,000 mls @ 125 mls/hr IV ASDIRECTED GEM Last Admin: 04/03/17 02:58 Dose: 125 mls/hr Levofloxacin/Dextrose 750 mg/ (Premix) 150 mls @ 100 mls/hr IV DAILY ONE Stop: 04/01/17 18:34 Last Admin: 04/01/17 17:40 Dose: 100 mls/hr Sodium Chloride (Normal Saline) 1,000 mls @ 75 mls/hr IV ASDIRECTED [facility] Last Admin: 04/04/17 02:42 Dose: 75 mls/hr Pantoprazole Sodium (Protonix Iv) 80 mg IVPUSH .BOLUS ONE Stop: 04/01/17 13:03 Last Admin: 04/01/17 13:47 Dose: 80 mg Potassium Chloride (Klor-Con M20) 40 meq PO ONETIME ONE Stop: 04/03/17 09:50 Last Admin: 04/03/17 10:31 Dose: 40 meq - Exam General: Alert, Oriented, Cooperative, No Acute Distress Lungs: Clear to Auscultation, Normal Respiratory Effort Cardiovascular: Regular Rate, Regular Rhythm GI/Abdominal Exam: Normal Bowel Sounds, Soft, Non-Tender, No Organomegaly, No Distention, No Abnormal Bruit, No Mass, Pelvis Stable Extremities: Normal Inspection, Normal Range of Motion, Non-Tender, No Pedal Edema, Normal Capillary Refill, Other (some +1 edema to upper extremities.) Neurological: No New Focal Deficit Psy/Mental Status: Alert, Normal Affect, Normal Mood - Problem List & Annotations (1) Acute GI bleeding SNOMED Code(s): 53365941 Code(s): K92.2 - GASTROINTESTINAL HEMORRHAGE, UNSPECIFIED Status: Acute Priority: High Current Visit: Yes (2) UTI (urinary tract infection) SNOMED Code(s): 52918429 Code(s): N39.0 - URINARY TRACT INFECTION, SITE NOT SPECIFIED Status: Acute Priority: High Current Visit: Yes Qualifiers: Urinary tract infection type: acute cystitis (3) Arthritis, rheumatoid SNOMED Code(s): 08248762 Code(s): M06.9 - RHEUMATOID ARTHRITIS, UNSPECIFIED Status: Chronic Priority: Low Current Visit: Yes Qualifiers: Rheumatoid arthritis location: multiple sites Rheumatoid factor presence: with rheumatoid factor Qualified Code(s): M05.79 - Rheumatoid arthritis with rheumatoid factor of multiple sites without organ or systems involvement (4) Diabetes mellitus SNOMED Code(s): 49359943 Code(s): E11.9 - TYPE 2 DIABETES MELLITUS WITHOUT COMPLICATIONS Status: Chronic Priority: Medium Current Visit: Yes Qualifiers: Diabetes mellitus type: type 2 Diabetes mellitus complication status: with unspecified complications 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 Qualified Code(s): E11.8 - Type 2 diabetes mellitus with unspecified complications (5) Hypertension SNOMED Code(s): 28432684 Code(s): I10 - ESSENTIAL (PRIMARY) HYPERTENSION Status: Chronic Priority : Medium Current Visit: Yes Qualifiers: Hypertension type: essential hypertension Qualified Code(s): I10 - Essential (primary) hypertension (6) Atrial fibrillation SNOMED Code(s): 22076862 Code(s): I48.91 - UNSPECIFIED ATRIAL FIBRILLATION Status: Acute Current Visit: No - Problem List Review Problem List Initiated/Reviewed/Updated: Yes - My Orders Last 24 Hours: My Active Orders 04/04/17 Lunch Soft Diet [DIET] - Plan Plan:: 86-year-old female admitted for anemia hemoglobin 7.7 suspected acute GI bleed found to have UTI with past medical history of hypertension, hyperlipidemia, DM2 , rheumatoid arthritis, GERD. 1. Acute GI bleed: Hgb 9.9 this morning. large melanotic and maroon stool noted Hemoccult obtained and positive yesterday. No further stools today or overnight. Will monitor. Therapeutic barium enema unsuccessful due to leaking of barium from rectum. Continue Protonix but now PO. Monitor for stools, if conitnue to be maroon and bloody may need to talk to family and patient regarding goals of care. Patient and family yesterday were ok with barium enema but no further interventions such as colonoscopy or EGD. 2. UTI: Improving. Klebsiella PNA urine culture pansensitive expect Ampicillin. Cont. Continue Levofloxacin 750 mg IV daily 3. Hypertension: Continued to be elevated today, continue home meds. Will give dose of Lasix 40 mg IV now. Cont. to monitor closely. 4. Hyperlipidemia: Stable. Cont. home meds. 5. DM2: Stable. ISS low TIDAC 6. Rheumatoid arthritis: Pain ok, worse with movement. Continue Fentanyl patch and Morphine for breakthrough. 7. GERD: Continue Protonix PO VTE prophylaxis: SCD no pharmacologic secondary to acute GI bleed. Dispo: 2-3 days pending improvement
[2017-04-05] MEDS: Carvedilol 12.5 MG Tab PO SCH ×2 (09:43→20:31)
[2017-04-05] MEDS: Ferrous Sulfate 325 MG Tab PO SCH ×3 (09:44→17:31)
[2017-04-05] MEDS: Pantoprazole 40 MG Vial IVPUSH SCH (09:44)
[2017-04-05] MEDS: Levofloxacin/Dextrose 5%-Water 750 MG in Premix Bag 1 BAG IV SCH (09:44)
[2017-04-05] MEDS: hydrALAZINE 20 MG/ML SDV IVPUSH PRN (09:45)
[2017-04-05] MEDS ORDERED: Furosemide 40 MG/4 ML VIAL IVPUSH ONE (12:22)
[2017-04-05] MEDS: Pantoprazole 40 MG Tab.CR PO SCH (16:16)
[2017-04-06] MEDS: Nystatin Topical Powder 15 GM Bottle TOP SCH ×2 (06:53→16:13)
[2017-04-06] MEDS: Pantoprazole 40 MG Tab.CR PO SCH ×2 (06:54→18:22)
[2017-04-06] MEDS: Insulin Aspart 100 Units/ML 3 ML Pen SUBCUT SCH ×3 (06:54→18:21)
[2017-04-06] MEDS: Sucralfate Suspension 1 GM/10 ML Cup PO SCH ×3 (06:54→18:21)
[2017-04-06 07:50] LABS: CHLORIDE,CL 112 mmol/L (98-110); SODIUM,NA 139 mmol/L (136-146)
[2017-04-06 08:53] VITALS: BP 191/79
[2017-04-06] MEDS ORDERED: Potassium Chloride 20 MEQ Tab.ER PO ONE (08:59)
[2017-04-06] MEDS: fentaNYL 25 MCG/HR Transdermal Patch TRDERM SCH (09:05)
[2017-04-06] MEDS: Ferrous Sulfate 325 MG Tab PO SCH ×3 (09:07→18:22)
[2017-04-06] MEDS: Carvedilol 12.5 MG Tab PO SCH (09:08)
[2017-04-06] MEDS: hydrALAZINE 20 MG/ML SDV IVPUSH PRN (09:10)
--- NOTE | 2017-04-06 10:47 | PCM.DCSUM1 ---
Discharge Summary - Discharge Data Discharge Date: 04/06/17 Discharge Disposition: DC/Tfer to SNF 03 Condition: Stable - Discharge Diagnosis/Problem(s) (1) Acute GI bleeding SNOMED Code(s): 92322461 ICD Code: K92.2 - GASTROINTESTINAL HEMORRHAGE, UNSPECIFIED Status: Acute Priority: High Current Visit: Yes (2) UTI (urinary tract infection) SNOMED Code(s): 76097765 ICD Code: N39.0 - URINARY TRACT INFECTION, SITE NOT SPECIFIED Status: Acute Priority: High Current Visit: Yes Qualifiers: Urinary tract infection type: acute cystitis (3) Arthritis, rheumatoid SNOMED Code(s): 25893756 ICD Code: M06.9 - RHEUMATOID ARTHRITIS, UNSPECIFIED Status: Chronic Priority: Low Current Visit: Yes Qualifiers: Rheumatoid arthritis location: multiple sites Rheumatoid factor presence: with rheumatoid factor Qualified Code(s): M05.79 - Rheumatoid arthritis with rheumatoid factor of multiple sites without organ or systems involvement (4) Diabetes mellitus SNOMED Code(s): 68561670 ICD Code: E11.9 - TYPE 2 DIABETES MELLITUS WITHOUT COMPLICATIONS Status: Chronic Priority: Medium Current Visit: Yes Qualifiers: Diabetes mellitus type: type 2 Diabetes mellitus complication status: with unspecified complications 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 Qualified Code(s): E11.8 - Type 2 diabetes mellitus with unspecified complications (5) Hypertension SNOMED Code(s): 94350524 ICD Code: I10 - ESSENTIAL (PRIMARY) HYPERTENSION Status: Chronic Priority : Medium Current Visit: Yes Qualifiers: Hypertension type: essential hypertension Qualified Code(s): I10 - Essential (primary) hypertension (6) Atrial fibrillation SNOMED Code(s): 52537934 ICD Code: I48.91 - UNSPECIFIED ATRIAL FIBRILLATION Status: Acute Current Visit: No - Patient Summary/Data Consults: Consultations 04/01/17 16:45 Consult to Physician [CONS] Routine - Patient Instructions Diet: Diabetic Diet Activity: As Tolerated Showering/Bathing: May Shower Notify Provider of: Fever, Increased Pain, Swelling and Redness, Drainage, Nausea and/or Vomiting Other/Special Instructions: PT/OT/ST evaluate and treat - Discharge Plan Prescriptions/Med Rec: fentaNYL [Fentanyl] 25 mcg TD Q72H #5 patch.td72 Levofloxacin [Levaquin] 750 mg PO Q48H #3 tab Nystatin [Nystop] 100,000 units TOP TID #1 bottle oxyCODONE 5 mg PO QID PRN #20 tablet PRN Reason: arm pain Pantoprazole [ProTONIX] 40 mg PO BIDAC #60 tab.cr Sucralfate [Carafate] 1 gm PO QIDACANDBED #120 cup traMADol HCl [Tramadol HCl] 50 mg PO BID #15 tablet Home Medications: Home Meds Carvedilol [Coreg] 12.5 mg PO BID 09/23/14 [History] Bisacodyl [Dulcolax] 10 mg RC Q72H PRN 04/02/17 [History] Ferrous Sulfate 325 mg PO TIDMEALS 04/02/17 [History] Hypromellose [Genteal Severe] 1 applic EYEBOTH QID 04/02/17 [History] Magnesium Hydroxide [Milk of Magnesia] 30 ml PO . NEEDED PRN 04/02/17 [History ] Albuterol Sulfate 2.5 mg IH Q4H PRN 04/06/17 [History] Fluticasone/Salmeterol [Advair 250-50] 2 puff INH BID 04/06/17 [History] Furosemide [Lasix] 40 mg PO DAILY 04/06/17 [History] Levofloxacin [Levaquin] 750 mg PO Q48H #3 tab 04/06/17 [Rx] Nystatin [Nystop] 100,000 units TOP TID #1 bottle 04/06/17 [Rx] Pantoprazole [ProTONIX] 40 mg PO BIDAC #60 tab.cr 04/06/17 [Rx] Sertraline HCl 25 mg PO DAILY 04/06/17 [History] Sucralfate [Carafate] 1 gm PO QIDACANDBED #120 cup 04/06/17 [Rx] atorvaSTATin [Lipitor] 20 mg PO BEDTIME 04/06/17 [History] cycloSPORINE [Restasis] 1 each EYEBOTH BID 04/06/17 [History] fentaNYL [Fentanyl] 25 mcg TD Q72H #5 patch.td72 04/06/17 [Rx] guaiFENesin [Tussin] 5 ml PO Q4H PRN 04/06/17 [History] oxyCODONE 5 mg PO QID PRN #20 tablet 04/06/17 [Rx] traMADol HCl [Tramadol HCl] 50 mg PO BID #15 tablet 04/06/17 [Rx] Referrals: Enrike Damon MD [Physician] - - Discharge Summary/Plan Comment DC Time >30 min.: No Discharge Summary/Plan Comment: Discharge Diagnoses Acute GI bleed UTI HTN DM Type 2 RA Afib Angie was admitted and treated with protonix gtt for acute GI bleed, Melanotic stool was noted on admission and some bloody stools during admission. Hgb was 7.7 on admission, she was give two units PRBCs, the follow day she again had a drop to 7.7 nad was transfused another 2 units, 4 units in total. Hgb has since rmeained stable 10.7 today. Barium enema was attempted, but was not completely successful due to barium leaking around balloon. She has not had BM since and no blood noted. She was also treated for Kelbsiella UTI with Levaquin. She will be discharged back to [place] today. She will be sent home with Protonix BID, Carafate and Levaquin. I will stop her ASA and leave to PCP to restart if and when needed. I spoke with PCP, Dr Damon today who is aware of admission and transfer back to [place] along with treatment plan. Jenniffer, angie's neice, also updated on discharge. Angie is to return to ED or clinic if concerns should arise. She again expressed she did not want anything aggressive done, including colonscopy or EGD due to bleeding. - General Info Date of Service: 04/06/17 Admission Dx/Problem (Free Text: Admission Diagnosis/Problem Admission Diagnosis/Problem GI bleed Subjective Update: Doing well this morning, no SOB noted. Edema to upper arms better. Denies chest pain, SOB or abdominal pain, No further BMS. Reports she is ok with going back to [place] today. Functional Status: Reports: Pain Controlled, Tolerating Diet, Urinating - Review of Systems General: Reports: No Symptoms. Denies: Fever HEENT: Reports: No Symptoms. Denies: Sore Throat, Rhinitis, Visual Changes Pulmonary: Reports: No Symptoms. Denies: Shortness of Breath Cardiovascular: Reports: No Symptoms. Denies: Chest Pain, Palpitations, Edema Gastrointestinal: Reports: No Symptoms. Denies: Abdominal Pain, Nausea, Vomiting Genitourinary: Reports: No Symptoms. Denies: Dysuria, Frequency, Burning Musculoskeletal: Reports: No Symptoms. Denies: Neck Pain Neurological: Reports: No Symptoms. Denies: Confusion Psychiatric: Reports: No Symptoms. Denies: Confusion - Patient Data Vitals - Most Recent: Last Vital Signs Temp 97.9 F 04/06/17 08:00 Pulse 77 04/06/17 09:08 Resp 16 04/06/17 08:00 BP 191/79 H 04/06/17 09:08 Pulse Ox 96 04/06/17 08:00 Weight - Most Recent: 80.83 kg I&O - Last 24 hours: Intake & Output 04/05/17 04/06/17 04/06/17 22:59 06:59 14:59 Intake Total 776 200 Output Total 1450 1350 Balance -674 -1150 Lab Results - Last 24 hrs: Laboratory Results - last 24 hr 04/05/17 04/05/17 04/06/17 Range/Units 12:20 17:00 05:10 WBC 11.62 H (4.0-11.0) K/uL RBC 3.57 L (4.30-5.90) M/uL Hgb 10.7 L (12.0-16.0) g/dL Hct 32.0 L (36.0-46.0) % MCV 89.6 (80.0-98.0) fL MCH 30.0 (27.0-32.0) pg MCHC 33.4 (31.0-37.0) g/dL RDW Std Deviation 49.9 (28.0-62.0) fl RDW Coeff of Steven 16 H (11.0-15.0) % Plt Count 148 L (150-400) K/uL MPV 9.40 (7.40-12.00) fL Add Manual Diff YES Neutrophils % (Manual) 68 (48.0-80.0) % Lymphocytes % (Manual) 22 (16.0-40.0) % Monocytes % (Manual) 6 (0.0-15.0) % Eosinophils % (Manual) 2 (0.0-7.0) % Metamyelocytes % 1 % Myelocytes % 1 % Nucleated RBC % 0.0 /100WBC Absolute Seg Neuts 7.9 H (1.4-5.7) Lymphocytes # (Manual) 2.6 H (0.6-2.4) Monocytes # (Manual) 0.7 (0.0-0.8) Eosinophils # (Manual) 0.2 (0.0-0.7) Absolute Metamyelocyte 0.1 Absolute Myelocytes 0.1 Nucleated RBCs # 0 K/uL Sodium (136-146) mmol/L Potassium (3.5-5.1) mmol/L Chloride (98-110) mmol/L Carbon Dioxide (21-31) mmol/L BUN (6.0-23.0) mg/dL Creatinine (0.6-1.5) mg/dL Est Cr Clr Drug Dosing mL/min Estimated GFR (MDRD) ml/min Glucose (60-110) mg/dL POC Glucose 158 H 133 H (60-110) mg/dL Calcium (8.8-10.8) mg/dL 04/06/17 04/06/17 Range/Units 06:14 07:37 WBC (4.0-11.0) K/uL RBC (4.30-5.90) M/uL Hgb (12.0-16.0) g/dL Hct (36.0-46.0) % MCV (80.0-98.0) fL MCH (27.0-32.0) pg MCHC (31.0-37.0) g/dL RDW Std Deviation (28.0-62.0) fl RDW Coeff of Steven (11.0-15.0) % Plt Count (150-400) K/uL MPV (7.40-12.00) fL Add Manual Diff Neutrophils % (Manual) (48.0-80.0) % Lymphocytes % (Manual) (16.0-40.0) % Monocytes % (Manual) (0.0-15.0) % Eosinophils % (Manual) (0.0-7.0) % Metamyelocytes % % Myelocytes % % Nucleated RBC % /100WBC Absolute Seg Neuts (1.4-5.7) Lymphocytes # (Manual) (0.6-2.4) Monocytes # (Manual) (0.0-0.8) Eosinophils # (Manual) (0.0-0.7) Absolute Metamyelocyte Absolute Myelocytes Nucleated RBCs # K/uL Sodium 139 (136-146) mmol/L Potassium 3.1 L (3.5-5.1) mmol/L Chloride 112 H (98-110) mmol/L Carbon Dioxide 22 (21-31) mmol/L BUN 21 (6.0-23.0) mg/dL Creatinine 0.8 (0.6-1.5) mg/dL Est Cr Clr Drug Dosing 46.19 mL/min Estimated GFR (MDRD) > 60.0 ml/min Glucose 150 H (60-110) mg/dL POC Glucose 153 H (60-110) mg/dL Calcium 8.0 L (8.8-10.8) mg/dL Med Orders - Current: Current Medications Albuterol/Ipratropium (Duoneb 3.0-0.5 Mg/3 Ml) 3 ml NEB Q6H PRN PRN Reason: Shortness Of Breath/wheezing Last Admin: 04/04/17 18:36 Dose: 3 ml Carvedilol (Coreg) 12.5 mg PO BID [facility] Last Admin: 04/06/17 09:08 Dose: 12.5 mg Fentanyl (Duragesic) 25 mcg TRDERM Q72H [facility] Last Admin: 04/06/17 09:05 Dose: 25 mcg Ferrous Sulfate (Ferrous Sulfate) 325 mg PO TIDMEALS [facility] Last Admin: 04/06/17 09:07 Dose: 325 mg Hydralazine HCl (Apresoline) 10 mg IVPUSH Q6H PRN PRN Reason: SBP>170mmHg Last Admin: 04/06/17 09:10 Dose: 10 mg Levofloxacin/Dextrose 750 mg/ (Premix) 150 mls @ 100 mls/hr IV Q48H [facility] Insulin Aspart (Novolog) 0 unit SUBCUT TIDAC [facility] PRN Reason: Protocol Last Admin: 04/06/17 06:54 Dose: 1 units Magnesium Hydroxide (Milk Of Magnesia) 30 ml PO . NEEDED PRN PRN Reason: Constipation Morphine Sulfate (Morphine) 2 mg IVPUSH Q2H PRN PRN Reason: Pain (severe 7-10) Last Admin: 04/03/17 03:06 Dose: 2 mg Nystatin (Nystop) 0 gm TOP TID [facility] Last Admin: 04/06/17 06:53 Dose: 1 applic Ondansetron HCl (Zofran Odt) 4 mg PO Q4H PRN PRN Reason: nausea, able to take PO Ondansetron HCl (Zofran) 4 mg IVPUSH Q4H PRN PRN Reason: Pain Pantoprazole Sodium (Protonix) 40 mg PO BIDAC GEM Last Admin: 04/06/17 06:54 Dose: 40 mg Polyethylene Glycol (Miralax) 17 gm PO DAILY PRN PRN Reason: Constipation Sodium Chloride (Saline Flush) 10 ml FLUSH ASDIRECTED PRN PRN Reason: Keep Vein Open Last Admin: 04/01/17 13:47 Dose: 10 ml Sodium Chloride (Saline Flush) 2.5 ml FLUSH ASDIRECTED PRN PRN Reason: Keep Vein Open Last Admin: 04/01/17 13:47 Dose: 2.5 ml Sucralfate (Carafate) 1 gm PO QIDACANDBED [facility] Last Admin: 04/06/17 06:54 Dose: 1 gm Discontinued Medications Albuterol/Ipratropium (Duoneb 3.0-0.5 Mg/3 Ml) 3 ml NEB ONETIME ONE Stop: 04/03/17 15:01 Last Admin: 04/03/17 15:00 Dose: 3 ml Calcium Carbonate/Glycine (Tums) 1,000 mg PO ONETIME ONE Stop: 04/02/17 07:14 Last Admin: 04/02/17 08:28 Dose: Not Given Furosemide (Lasix) 20 mg IVPUSH NOW ONE Stop: 04/03/17 19:01 Last Admin: 04/03/17 19:09 Dose: 20 mg Furosemide (Lasix) 40 mg IVPUSH NOW ONE Stop: 04/05/17 12:23 Last Admin: 04/05/17 12:49 Dose: 40 mg Hydralazine HCl (Apresoline) 10 mg IVPUSH ONETIME STA Stop: 04/02/17 22:49 Last Admin: 04/02/17 23:19 Dose: 10 mg Pantoprazole Sodium 80 mg/ (Sodium Chloride) 100 mls @ 10 mls/hr IV .Continuous GEM Sodium Chloride (Normal Saline) 1,000 mls @ 125 mls/hr IV STAT GEM Last Infusion: 04/01/17 21:46 Dose: Infused Pantoprazole Sodium 80 mg/ (Sodium Chloride) 50 mls @ 5 mls/hr IV .Continuous GEM Stop: 04/02/17 00:01 Last Admin: 04/01/17 14:50 Dose: 5 mls/hr Sodium Chloride (Normal Saline) 1,000 mls @ 125 mls/hr IV ASDIRECTED [facility] Last Admin: 04/03/17 02:58 Dose: 125 mls/hr Levofloxacin/Dextrose 750 mg/ (Premix) 150 mls @ 100 mls/hr IV DAILY ONE Stop: 04/01/17 18:34 Last Admin: 04/01/17 17:40 Dose: 100 mls/hr Levofloxacin/Dextrose 750 mg/ (Premix) 150 mls @ 100 mls/hr IV Q24H [facility] Last Admin: 04/05/17 09:44 Dose: 100 mls/hr Sodium Chloride (Normal Saline) 1,000 mls @ 75 mls/hr IV ASDIRECTED [facility] Last Admin: 04/04/17 02:42 Dose: 75 mls/hr Pantoprazole Sodium (Protonix Iv) 80 mg IVPUSH .BOLUS ONE Stop: 04/01/17 13:03 Last Admin: 04/01/17 13:47 Dose: 80 mg Pantoprazole Sodium (Protonix Iv) 80 mg IVPUSH BID [facility] Last Admin: 04/05/17 09:44 Dose: 80 mg Potassium Chloride (Klor-Con M20) 40 meq PO ONETIME ONE Stop: 04/03/17 09:50 Last Admin: 04/03/17 10:31 Dose: 40 meq Potassium Chloride (Klor-Con M20) 20 meq PO ONETIME ONE Stop: 04/06/17 09:00 Last Admin: 04/06/17 09:57 Dose: 20 meq - Exam General: Reports: Alert, Oriented, Cooperative, No Acute Distress Neck: Reports: Supple Lungs: Reports: Clear to Auscultation, Normal Respiratory Effort Cardiovascular: Reports: Regular Rate, Regular Rhythm Extremities: Normal Inspection, Normal Range of Motion, Non-Tender, No Pedal Edema, Normal Capillary Refill Skin: Reports: Warm, Dry, Ecchymosis (bruising noted to upper arms and hands from IV pokes and labs) Neurological: Reports: No New Focal Deficit Psy/Mental Status: Reports: Alert, Normal Affect, Normal Mood *Q Meaningful Use (DIS) - VTE *Q VTE Criteria *Q: - Stroke *Q Stroke Criteria *Q: - AMI *Q AMI Criteria *Q:
[2017-04-06] MEDS ORDERED: Furosemide 40 MG Tab PO ONE (12:28)
[2017-04-07] MEDS ORDERED: Levofloxacin/Dextrose 5%-Water 750 MG in Premix Bag 1 BAG IV SCH (09:00)
== END 2017-04-06 13:40 | DRG 378 ==
LOC: MW.ED 12:55 → MW.MS 14:05 → UNDOADMIN 14:52
PROVIDERS: ADMIT Family Medicine; ATTEND Family Medicine
PROC: 30253N1 (ICD-10-PCS; principal; 2017-04-01)
DX: K92.1 Melena (principal); K92.2 Gastrointestinal hemorrhage, unspecified; N39.0 Urinary tract infection, site not specified; Z87.891 Personal history of nicotine dependence; Z66 Do not resuscitate; D62 Acute posthemorrhagic anemia; B96.1 Klebsiella pneumoniae [K. pneumoniae] as the cause of diseases classified elsewhere; K21.9 Gastro-esophageal reflux disease without esophagitis; M05.79 Rheumatoid arthritis with rheumatoid factor of multiple sites without organ or systems involvement; E11.9 Type 2 diabetes mellitus without complications; I10 Essential (primary) hypertension; I48.91 Unspecified atrial fibrillation; E78.5 Hyperlipidemia, unspecified; F32.9 Major depressive disorder, single episode, unspecified; Z88.8 Allergy status to other drugs, medicaments and biological substances; Z79.899 Other long term (current) drug therapy; Z79.4 Long term (current) use of insulin
CPT/HCPCS: 36415; 71045; 74176; 80053; 84484; 85025; 85610; 86850; 86900; 86901; 86920 ×2; 86921 ×2; 86922 ×2; 93005; 96361; 96374; 99285; C9113 ×2; J7030; J7040; 36410; 36430; 74283; 74283-26; 80048; 81001; 82272; 82962; 83735; 84100; 85014; 85018; 85027; 87086; 87088; 87186; 94640; 96376; 99284; A9270-GY; J0360; J1815-GY; J1940; J1956; J2270; P9016

== ENCOUNTER 2017-12-14 20:52 | Emergency (ER) | payer MEDICARE, MEDICAID ==
[2017-12-14] MEDS ORDERED: Sodium Chloride 0.9% 2.5 ML Syringe FLUSH PRN (21:20)
[2017-12-14] MEDS ORDERED: Sodium Chloride 0.9% 10 ML Syringe FLUSH PRN (21:20)
--- NOTE | 2017-12-14 21:29 | EDM.PDOC ---
<Sunday Calderon - Last Filed: 12/15/17 00:04> ED HPI GENERAL MEDICAL PROBLEM - General Chief Complaint: Gastrointestinal Problem Stated Complaint: BLOOD IN PT STOOL Time Seen by Provider: 12/14/17 20:58 Source of Information: Reports: Patient History Limitations: Reports: No Limitations - History of Present Illness INITIAL COMMENTS - FREE TEXT/NARRATIVE: Dr. Calderon taking over patient care at 2200. I been thoroughly briefed on the patient and have reviewed all radiologic and laboratory findings. I personally examined the patient and agree with the above. CBC showed mild anemia with a hemoglobin of 11, CMP, INR unremarkable. Hemoccult was positive. Patient does have history of GI bleed and needed a transfusion on the previous admission. I did admit this patient has a hospitalist at that time. Family is adamant about not having a on endoscopy. She did receive a barium enema at that time. CT abdomen and showed [id number] amount of stool present in the rectal vault. I did talk to the patient and she does not feel constipated and has been having regular bowel movements. In addition there was a lobulated tubular lesion in the left retroperitoneum that measures 6.7 x 3.2 cm. Radiology recommended a outpatient contrast-enhanced imaging if wanted follow-up area did discuss this with family as well as the patient. They should talk to Dr. Damon, their primary care provider if further imaging wanted. There was also a 2 cm nodule in the left adrenal gland. This may also be further worked up if warranted by Dr. Damon and family. Secondary to patient's history of urinary tract infections I did get a UA which was positive. Looking in her history she has had Klebsiella pneumoniae as a primary bacterial etiology of the acute cystitis. It appears to be pansensitive. I did discharge the patient on Bactrim DS by mouth twice a day 7 days. In addition secondary to the patient's positive Hemoccult I did prescribe the patient omeprazole 40 mg by mouth daily as well as Carafate 1 g by mouth 4 times a day 14 days. They should follow-up with Dr. Damon as well as general surgery however they do not wish for any colonoscopy. Onset: Today - Related Data Allergies Allergy/AdvReac Type Severity Reaction Status Date / Time acetaminophen [From Tylenol] Allergy Shortness Verified 04/01/17 13:00 of Breath perfume Allergy Rash Verified 04/01/17 13:00 Home Meds: Home Meds Carvedilol [Coreg] 12.5 mg PO BID 09/23/14 [History] Bisacodyl [Dulcolax] 10 mg RC Q72H PRN 04/02/17 [History] Ferrous Sulfate 325 mg PO TIDMEALS 04/02/17 [History] Hypromellose [Genteal Severe] 1 applic EYEBOTH QID 04/02/17 [History] Magnesium Hydroxide [Milk of Magnesia] 30 ml PO . NEEDED PRN 04/02/17 [History ] Albuterol Sulfate 2.5 mg IH Q4H PRN 04/06/17 [History] Sertraline HCl 25 mg PO DAILY 04/06/17 [History] atorvaSTATin [Lipitor] 20 mg PO BEDTIME 04/06/17 [History] Aspirin 1 tab PO DAILY 12/14/17 [History] Famotidine [Pepcid] 1 tab PO BEDTIME 12/14/17 [History] Fluticasone/Vilanterol [Breo Ellipta 200-25 Mcg INH] 1 puff INH ASDIRECTED PRN 12/14/17 [History] Furosemide [Lasix] 1 tab PO DAILY 12/14/17 [History] fentaNYL [Fentanyl] 37.5 mcg TD Q72H 12/14/17 [History] traMADol HCl [Tramadol HCl] 50 mg PO Q4HR PRN 12/14/17 [History] ED ROS GENERAL - Review of Systems Review Of Systems: ROS reveals no pertinent complaints other than HPI. ED EXAM, GI/ABD - Physical Exam Exam: See Below Course - Vital Signs Last Recorded V/S: Last Vital Signs Temp 98.2 F 12/14/17 23:36 Pulse 79 12/14/17 23:36 Resp 24 H 12/14/17 23:36 BP 167/74 H 12/14/17 23:36 Pulse Ox 97 12/14/17 23:36 - Orders/Labs/Meds Orders: Active Orders 24 hr Category Date Time Status EKG Documentation Completion [RC] STAT Care 12/14/17 21:48 Active Hemoccult [Fecal Occult Blood Collection] [RC] Care 12/14/17 21:21 Active ASDIRECTED CULTURE URINE [RM] Stat Lab 12/14/17 23:27 Received Saline Lock Insert [OM.PC] Stat Oth 12/14/17 21:21 Ordered Labs: Laboratory Tests 12/14/17 12/14/17 12/14/17 Range/Units 21:19 21:19 21:19 WBC 7.10 (4.0-11.0) K/uL RBC 3.67 L (4.30-5.90) M/uL Hgb 11.4 L (12.0-16.0) g/dL Hct 34.6 L (36.0-46.0) % MCV 94.3 (80.0-98.0) fL MCH 31.1 (27.0-32.0) pg MCHC 32.9 (31.0-37.0) g/dL RDW Std Deviation 46.7 (28.0-62.0) fl RDW Coeff of Steven 14 (11.0-15.0) % Plt Count 225 (150-400) K/uL MPV 9.70 (7.40-12.00) fL Neut % (Auto) 63.5 (48.0-80.0) % Lymph % (Auto) 22.5 (16.0-40.0) % [place] % (Auto) 10.8 (0.0-15.0) % Eos % (Auto) 3.1 (0.0-7.0) % Baso % (Auto) 0.1 (0.0-1.5) % Neut # (Auto) 4.5 (1.4-5.7) K/uL Lymph # (Auto) 1.6 (0.6-2.4) K/uL [place] # (Auto) 0.8 (0.0-0.8) K/uL Eos # (Auto) 0.2 (0.0-0.7) K/uL Baso # (Auto) 0.0 (0.0-0.1) K/uL Nucleated RBC % 0.0 /100WBC Nucleated RBCs # 0 K/uL INR 1.02 Sodium 140 (136-145) mmol/L Potassium 4.0 (3.5-5.1) mmol/L Chloride 107 (98-107) mmol/L Carbon Dioxide 25.3 (21.0-32.0) mmol/L BUN 29 H (7.0-18.0) mg/dL Creatinine 1.0 (0.6-1.0) mg/dL Est Cr Clr Drug Dosing TNP Estimated GFR (MDRD) 52.6 ml/min Glucose 186 H (74-106) mg/dL Calcium 8.8 (8.5-10.1) mg/dL Total Bilirubin 0.3 (0.2-1.0) mg/dL AST 13 L (15-37) IU/L ALT 9 L (14-63) IU/L Alkaline Phosphatase 91 (46-116) U/L Total Protein 6.7 (6.4-8.2) g/dL Albumin 2.5 L (3.4-5.0) g/dL Globulin 4.2 H (2.0-3.5) g/dL Albumin/Globulin Ratio 0.6 L (1.3-2.8) Urine Color Urine Appearance Urine pH (5.0-8.0) Ur Specific [place] (1.001-1.035) Urine Protein (NEGATIVE) mg/dL Urine Glucose (UA) (NEGATIVE) mg/dL Urine Ketones (NEGATIVE) mg/dL Urine Occult Blood (NEGATIVE) Urine Nitrite (NEGATIVE) Urine Bilirubin (NEGATIVE) Urine Urobilinogen (<2.0) EU/dL Ur Leukocyte Esterase (NEGATIVE) Urine RBC (0-2/HPF) Urine WBC (0-5/HPF) Ur Epithelial Cells (NONE-FEW) Urine Bacteria (NEGATIVE) Blood Type Antibody Screen 12/14/17 12/14/17 Range/Units 22:04 23:27 WBC (4.0-11.0) K/uL RBC (4.30-5.90) M/uL Hgb (12.0-16.0) g/dL Hct (36.0-46.0) % MCV (80.0-98.0) fL MCH (27.0-32.0) pg MCHC (31.0-37.0) g/dL RDW Std Deviation (28.0-62.0) fl RDW Coeff of Steven (11.0-15.0) % Plt Count (150-400) K/uL MPV (7.40-12.00) fL Neut % (Auto) (48.0-80.0) % Lymph % (Auto) (16.0-40.0) % [place] % (Auto) (0.0-15.0) % Eos % (Auto) (0.0-7.0) % Baso % (Auto) (0.0-1.5) % Neut # (Auto) (1.4-5.7) K/uL Lymph # (Auto) (0.6-2.4) K/uL [place] # (Auto) (0.0-0.8) K/uL Eos # (Auto) (0.0-0.7) K/uL Baso # (Auto) (0.0-0.1) K/uL Nucleated RBC % /100WBC Nucleated RBCs # K/uL INR Sodium (136-145) mmol/L Potassium (3.5-5.1) mmol/L Chloride (98-107) mmol/L Carbon Dioxide (21.0-32.0) mmol/L BUN (7.0-18.0) mg/dL Creatinine (0.6-1.0) mg/dL Est Cr Clr Drug Dosing Estimated GFR (MDRD) ml/min Glucose (74-106) mg/dL Calcium (8.5-10.1) mg/dL Total Bilirubin (0.2-1.0) mg/dL AST (15-37) IU/L ALT (14-63) IU/L Alkaline Phosphatase (46-116) U/L Total Protein (6.4-8.2) g/dL Albumin (3.4-5.0) g/dL Globulin (2.0-3.5) g/dL Albumin/Globulin Ratio (1.3-2.8) Urine Color YELLOW Urine Appearance SLT CLOUDY Urine pH 6.0 (5.0-8.0) Ur Specific [place] 1.020 (1.001-1.035) Urine Protein 100 (NEGATIVE) mg/dL Urine Glucose (UA) NEGATIVE (NEGATIVE) mg/dL Urine Ketones NEGATIVE (NEGATIVE) mg/dL Urine Occult Blood SMALL H (NEGATIVE) Urine Nitrite POSITIVE H (NEGATIVE) Urine Bilirubin NEGATIVE (NEGATIVE) Urine Urobilinogen 0.2 (<2.0) EU/dL Ur Leukocyte Esterase TRACE (NEGATIVE) Urine RBC 1-3 (0-2/HPF) Urine WBC 15-20 (0-5/HPF) Ur Epithelial Cells FEW (NONE-FEW) Urine Bacteria 2+ H (NEGATIVE) Blood Type A POSITIVE Antibody Screen NEGATIVE Meds: Medications Discontinued Medications Generic Name Dose Route Start Last Admin Trade Name Freq PRN Reason Stop Dose Admin Sodium Chloride 1,000 mls @ 125 mls/hr 12/14/17 21:31 12/14/17 21:48 Normal Saline IV 12/15/17 05:30 125 mls/hr STAT ONE Administration Pantoprazole Sodium 80 mg 12/14/17 21:31 12/14/17 21:48 Protonix Iv IVPUSH 12/14/17 21:32 80 mg .BOLUS ONE Administration Sodium Chloride 10 ml 12/14/17 21:20 Saline Flush FLUSH ASDIRECTED PRN Keep Vein Open Sodium Chloride 2.5 ml 12/14/17 21:20 Saline Flush FLUSH ASDIRECTED PRN Keep Vein Open Departure - Departure Time of Disposition: 00:08 Disposition: Home, Self-Care 01 Condition: Good Clinical Impression: Acute GI bleeding, Acute cystitis without hematuria, Dark stools - Discharge Information Instructions: Urinary Tract Infection, Adult, [id number], Gastrointestinal Bleeding, [id number] Referrals: PCP,None [Primary Care Provider] - Forms: ED Department Discharge Additional Instructions: My general discharge The following information is given to patients seen in the emergency department who are being discharged to home. This information is to outline your options for follow-up care. We provide all patients seen in our emergency department with a follow-up referral. The need for follow-up, as well as the timing and circumstances, are variable depending upon the specifics of your emergency department visit. If you don't have a primary care physician on staff, we will provide you with a referral. We always advise you to contact your personal physician following an emergency department visit to inform them of the circumstance of the visit and for follow-up with them and/or the need for any referrals to a consulting specialist. The emergency department will also refer you to a specialist when appropriate. This referral assures that you have the opportunity for follow-up care with a specialist. All of these measure are taken in an effort to provide you with optimal care, which includes your follow-up. Under all circumstances we always encourage you to contact your private physician who remains a resource for coordinating your care. When calling for follow-up care, please make the office aware that this follow-up is from your recent emergency room visit. If for any reason you are refused follow-up, please contact the [facility] Emergency Department at and asked to speak to the emergency department charge nurse. [address] [address] Follow-up with Dr. Damon as we discussed. Take medication as prescribed. Return to emergency department if any new or worsening symptoms. - My Orders Last 24 Hours: My Active Orders 12/14/17 21:21 Hemoccult [Fecal Occult Blood Collection] [RC] ASDIRECTED Saline Lock Insert [OM.PC] Stat 12/14/17 21:48 EKG Documentation Completion [RC] STAT - Assessment/Plan Last 24 Hours: My Active Orders 12/14/17 21:21 Hemoccult [Fecal Occult Blood Collection] [RC] ASDIRECTED Saline Lock Insert [OM.PC] Stat 12/14/17 21:48 EKG Documentation Completion [RC] STAT <Daria Mazariegos E - Last Filed: 12/15/17 20:09> ED HPI GENERAL MEDICAL PROBLEM - General Source of Information: Reports: Patient History Limitations: Reports: No Limitations - History of Present Illness INITIAL COMMENTS - FREE TEXT/NARRATIVE: HISTORY AND PHYSICAL: History of present illness: Patient is an 87 year old female who presents to the emergency room today with complaints of dark stools. Patient came from [facility], staff noted that she had dark stools this evening during rounds. The patient herself has no current complaints or concerns. The family member at the bedside states that she does have a history of GI bleed requiring hospitalization and blood transfusion approximately one year ago. She states she was supposed to follow up with the colonoscopy but did not. She denies any fever, chills, chest pain, shortness of breath or cough. Denies any abdominal pain, nausea, vomiting, diarrhea, constipation or dysuria. Patient has a past medical history of hypertension, hyperlipidemia, anemia, GI bleed, GERD, frequent UTIs, atrial fibrillation, RA, renal failure and type 2 diabetes. Review of systems: As per history of present illness and below otherwise all systems reviewed and negative. Past medical history: As per history of present illness and as reviewed below otherwise noncontributory. Surgical history: As per history of present illness and as reviewed below otherwise noncontributory. Social history: No reported history of drug or alcohol abuse. Family history: As per history of present illness and as reviewed below otherwise noncontributory. Physical exam: General: Well-developed and well-nourished 87 year old female. Alert and oriented. Nontoxic appearing and in no acute distress. HEENT: Atraumatic, normocephalic, pupils equal and reactive bilaterally, negative for conjunctival pallor or scleral icterus, mucous membranes moist, throat clear, neck supple, nontender, trachea midline. No drooling or trismus noted. No meningeal signs Lungs: Fine expiratory wheezing to right lower lobe, loose upper respiratory noise (cleared with coughing), breath sounds equal bilaterally, chest nontender. Heart: Regularly irregular, with known atrial fibrillation. HR 70-90's. Abdomen: Soft, nondistended, nontender. Negative for masses or hepatosplenomegaly. Negative for costovertebral tenderness. Pelvis: Stable nontender. Genitourinary: Deferred. Rectal: This was done with consent and a astrochemist at the bedside. She is incontinent of loose black stool. Hemoccult positive Skin: Intact, warm, dry. No lesions or rashes noted. Extremities: Atraumatic, patient is wheelchair-bound, passive range of motion to extremities. Some hand contractures noted (normal variance). Chronic pain to her left hip. She is negative for cords or calf pain. Neurovascular unremarkable. Neuro: Awake, alert, oriented. Cranial nerves II through XII unremarkable. Cerebellum unremarkable. Motor and sensory unremarkable throughout. Exam nonfocal. Notes: Patient is Hemoccult positive. Vital signs are stable. Lab work and CT results are pending. Dr Calderon has agreed to assume care of this patient at 2200. Diagnostics: CBC, CMP, INR, Hemoccult, CT abd/pelvis, type and screen Therapeutics: Protonix, IV fluids at 125ml/hr Definitive disposition and diagnosis as appropriate pending reevaluation and review of above. 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 Musculoskeletal History: Reports: Muscular Dystrophy, Osteoarthritis, RA Neurological History: Reports: Other (See Below) Other Neuro History: disorientation Psychiatric History: Reports: Depression Endocrine/Metabolic History: Reports: Diabetes, Type II Hematologic History: Reports: Anemia - Past Surgical History Female Surgical History: Reports: Hysterectomy Other Musculoskeletal Surgeries/Procedures:: left hip surgery, bilateral knee surgery Social & Family History - Family History Family Medical History: Noncontributory - Tobacco Use Smoking Status *Q: Never Smoker - Caffeine Use Caffeine Use: Reports: None - Recreational Drug Use Recreational Drug Use: No ED ROS GENERAL - Review of Systems Review Of Systems: ROS reveals no pertinent complaints other than HPI. ED EXAM, GI/ABD - Physical Exam Exam: See Below (See dictation) Course - Orders/Labs/Meds Labs: Laboratory Tests 12/14/17 12/14/17 12/14/17 Range/Units 21:19 21:19 21:19 WBC 7.10 (4.0-11.0) K/uL RBC 3.67 L (4.30-5.90) M/uL Hgb 11.4 L (12.0-16.0) g/dL Hct 34.6 L (36.0-46.0) % MCV 94.3 (80.0-98.0) fL MCH 31.1 (27.0-32.0) pg MCHC 32.9 (31.0-37.0) g/dL RDW Std Deviation 46.7 (28.0-62.0) fl RDW Coeff of Steven 14 (11.0-15.0) % Plt Count 225 (150-400) K/uL MPV 9.70 (7.40-12.00) fL Neut % (Auto) 63.5 (48.0-80.0) % Lymph % (Auto) 22.5 (16.0-40.0) % [place] % (Auto) 10.8 (0.0-15.0) % Eos % (Auto) 3.1 (0.0-7.0) % Baso % (Auto) 0.1 (0.0-1.5) % Neut # (Auto) 4.5 (1.4-5.7) K/uL Lymph # (Auto) 1.6 (0.6-2.4) K/uL [place] # (Auto) 0.8 (0.0-0.8) K/uL Eos # (Auto) 0.2 (0.0-0.7) K/uL Baso # (Auto) 0.0 (0.0-0.1) K/uL Nucleated RBC % 0.0 /100WBC Nucleated RBCs # 0 K/uL INR 1.02 Sodium 140 (136-145) mmol/L Potassium 4.0 (3.5-5.1) mmol/L Chloride 107 (98-107) mmol/L Carbon Dioxide 25.3 (21.0-32.0) mmol/L BUN 29 H (7.0-18.0) mg/dL Creatinine 1.0 (0.6-1.0) mg/dL Est Cr Clr Drug Dosing TNP Estimated GFR (MDRD) 52.6 ml/min Glucose 186 H (74-106) mg/dL Calcium 8.8 (8.5-10.1) mg/dL Total Bilirubin 0.3 (0.2-1.0) mg/dL AST 13 L (15-37) IU/L ALT 9 L (14-63) IU/L Alkaline Phosphatase 91 (46-116) U/L Total Protein 6.7 (6.4-8.2) g/dL Albumin 2.5 L (3.4-5.0) g/dL Globulin 4.2 H (2.0-3.5) g/dL Albumin/Globulin Ratio 0.6 L (1.3-2.8) Urine Color Urine Appearance Urine pH (5.0-8.0) Ur Specific [place] (1.001-1.035) Urine Protein (NEGATIVE) mg/dL Urine Glucose (UA) (NEGATIVE) mg/dL Urine Ketones (NEGATIVE) mg/dL Urine Occult Blood (NEGATIVE) Urine Nitrite (NEGATIVE) Urine Bilirubin (NEGATIVE) Urine Urobilinogen (<2.0) EU/dL Ur Leukocyte Esterase (NEGATIVE) Urine RBC (0-2/HPF) Urine WBC (0-5/HPF) Ur Epithelial Cells (NONE-FEW) Urine Bacteria (NEGATIVE) Blood Type Antibody Screen 10/03/18 10/03/18 Range/Units 22:04 23:27 WBC (4.0-11.0) K/uL RBC (4.30-5.90) M/uL Hgb (12.0-16.0) g/dL Hct (36.0-46.0) % MCV (80.0-98.0) fL MCH (27.0-32.0) pg MCHC (31.0-37.0) g/dL RDW Std Deviation (28.0-62.0) fl RDW Coeff of Steven (11.0-15.0) % Plt Count (150-400) K/uL MPV (7.40-12.00) fL Neut % (Auto) (48.0-80.0) % Lymph % (Auto) (16.0-40.0) % [place] % (Auto) (0.0-15.0) % Eos % (Auto) (0.0-7.0) % Baso % (Auto) (0.0-1.5) % Neut # (Auto) (1.4-5.7) K/uL Lymph # (Auto) (0.6-2.4) K/uL [place] # (Auto) (0.0-0.8) K/uL Eos # (Auto) (0.0-0.7) K/uL Baso # (Auto) (0.0-0.1) K/uL Nucleated RBC % /100WBC Nucleated RBCs # K/uL INR Sodium (136-145) mmol/L Potassium (3.5-5.1) mmol/L Chloride (98-107) mmol/L Carbon Dioxide (21.0-32.0) mmol/L BUN (7.0-18.0) mg/dL Creatinine (0.6-1.0) mg/dL Est Cr Clr Drug Dosing Estimated GFR (MDRD) ml/min Glucose (74-106) mg/dL Calcium (8.5-10.1) mg/dL Total Bilirubin (0.2-1.0) mg/dL AST (15-37) IU/L ALT (14-63) IU/L Alkaline Phosphatase (46-116) U/L Total Protein (6.4-8.2) g/dL Albumin (3.4-5.0) g/dL Globulin (2.0-3.5) g/dL Albumin/Globulin Ratio (1.3-2.8) Urine Color YELLOW Urine Appearance SLT CLOUDY Urine pH 6.0 (5.0-8.0) Ur Specific [place] 1.020 (1.001-1.035) Urine Protein 100 (NEGATIVE) mg/dL Urine Glucose (UA) NEGATIVE (NEGATIVE) mg/dL Urine Ketones NEGATIVE (NEGATIVE) mg/dL Urine Occult Blood SMALL H (NEGATIVE) Urine Nitrite POSITIVE H (NEGATIVE) Urine Bilirubin NEGATIVE (NEGATIVE) Urine Urobilinogen 0.2 (<2.0) EU/dL Ur Leukocyte Esterase TRACE (NEGATIVE) Urine RBC 1-3 (0-2/HPF) Urine WBC 15-20 (0-5/HPF) Ur Epithelial Cells FEW (NONE-FEW) Urine Bacteria 2+ H (NEGATIVE) Blood Type A POSITIVE Antibody Screen NEGATIVE
[2017-12-14] MEDS ORDERED: Sodium Chloride 0.9% 1,000 ML IV ONE (21:31)
[2017-12-14] MEDS ORDERED: Pantoprazole 40 MG Vial IVPUSH ONE (21:31)
[2017-12-14 21:48] LABS: CHLORIDE,CL 107 mmol/L (98-107); SODIUM,NA 140 mmol/L (136-145)
[2017-12-14 23:37] VITALS: BP 167/74
--- NOTE | 2017-12-15 13:05 | CT ---
EXAM DATE: 12/14/17 PATIENT'S AGE: 87 Patient: CHANCE SANDOVAL Facility: [place], [place] Site . Site : [id number] Study: CT Abdomen/Pelvis [id number] 10:59:54 PM Ordering Physician: Doctor Clark Final Report: INDICATION: Blood in stool TECHNIQUE: CT Abdomen and pelvis without i.v. contrast. Coronal and sagittal reformats were obtained. CONTRAST: None COMPARISON: None FINDINGS: Moderate degradation of image quality is present due to the patient`s inability to maintain a breath hold and beam hardening artifact from scanning with patient`s arms down by the sides. Lower chest: Unremarkable. Liver: Unremarkable. Spleen: Unremarkable. Pancreas: Unremarkable. Gallbladder: Multiple calcified tiny gallstones are noted within the gallbladder. Kidney: Unremarkable. No kidney or ureteral stones or obstruction seen. Adrenal: There is a 2 cm nodule in the left adrenal gland. Bowel: Severe sigmoid diverticulosis is present with no evidence of diverticulitis. Mild to moderate amount of stool is present in the rectal vault. The appendix is normal in appearance and size. Vascular: Unremarkable. Lymph: Unremarkable. Peritoneum: There is a lobulated tubular lesion in the left retroperitoneum that measures 6.7 x 3.2 cm. No pneumoperitoneum is seen. No significant ascites is noted. Pelvis: Evaluation of the pelvic soft tissues and osseous structures are limited by beam hardening artifacts from the right hip prosthesis. Soft tissue: Unremarkable. 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 IMPRESSIONS: 1. Mild to moderate amount of stool is present in the rectal vault. Correlation with physical exam recommended to exclude fecal impaction. 2. There is a lobulated tubular lesion in the left retroperitoneum that measures 6.7 x 3.2 cm. Evaluation with outpatient contrast-enhanced imaging recommended. 3. There is a 2 cm nodule in the left adrenal gland. Correlation with patient`s history and laboratory data is recommended to determine the hormone activity level of this lesion. Dictated by Marco Aldana MD @ 12/14/2017 11:07:52 PM Please note that all CT scans at this facility use dose modulation, iterative reconstruction, and/or weight-based dosing when appropriate to reduce radiation dose to as low as reasonably achievable. Dictated by: Marco Aldana MD @ 12/14/2017 23:09:35 (Electronic Signature) Report Signed by Proxy. MTDD
== END 2017-12-15 00:40 | disposition home or self-care (01) ==
LOC: MW.ED 20:52
DX: K92.1 Melena (principal); N30.00 Acute cystitis without hematuria; E11.9 Type 2 diabetes mellitus without complications; I10 Essential (primary) hypertension; K92.2 Gastrointestinal hemorrhage, unspecified; I48.91 Unspecified atrial fibrillation; E78.00 Pure hypercholesterolemia, unspecified; J45.909 Unspecified asthma, uncomplicated; Z79.899 Other long term (current) drug therapy; Z88.6 Allergy status to analgesic agent
CPT/HCPCS: 36415; 74176; 80053; 81001; 85025; 85610; 86850; 86900; 86901; 87086; 87088; 87186; 93005; 96361; 96374; 99285; C9113; J7040; 99283

== ENCOUNTER 2018-04-06 09:24 | Emergency (ER) | payer MEDICARE, MEDICAID ==
[2018-04-06] MEDS ORDERED: Sodium Chloride 0.9% 10 ML Syringe FLUSH PRN (09:30)
[2018-04-06] MEDS ORDERED: Sodium Chloride 0.9% 2.5 ML Syringe FLUSH PRN (09:30)
[2018-04-06] MEDS ORDERED: Sodium Chloride 0.9% 1,000 ML IV ONE (09:31)
[2018-04-06] MEDS ORDERED: Piperacillin/Tazobactam 3.375 GM in Sodium Chloride 0.9% 50 ML IV ONE (09:32)
[2018-04-06] MEDS ORDERED: Potassium Chloride Riders 40 MEQ in Premix Bag 1 BAG IV ONE (09:36)
--- NOTE | 2018-04-06 09:36 | EDM.PDOC ---
ED HPI GENERAL MEDICAL PROBLEM - General Stated Complaint: UNKOWN Time Seen by Provider: 04/06/18 10:16 - History of Present Illness INITIAL COMMENTS - FREE TEXT/NARRATIVE: HISTORY AND PHYSICAL: History of present illness: Patient is an 87-year-old female presents from [facility] with hypoxemia fever altered mental status with a advanced directive of DNR. There's been no reported vomiting diarrhea or other complaints patient is also reportedly a potassium of 2.5 Review of systems: As per history of present illness and below otherwise all systems reviewed and negative. Past medical history: As per history of present illness and as reviewed below otherwise noncontributory. Surgical history: As per history of present illness and as reviewed below otherwise noncontributory. Social history: No reported history of drug or alcohol abuse. Family history: As per history of present illness and as reviewed below otherwise noncontributory. Physical exam: HEENT: Atraumatic, normocephalic, no scleral icterus, mucous membranes dry, throat clear, neck supple, nontender, trachea midline. Lungs: Coarse with scattered rhonchi and crackles breath sounds equal bilaterally, chest nontender. Heart: S1S2, Abdomen: Soft, nondistended, nontender. Negative for masses or hepatosplenomegaly. Negative for costovertebral tenderness. Pelvis: Stable nontender. Genitourinary: Deferred. Rectal: Deferred. Extremities: No cords or calf pain Neuro: Somnolent basically unresponsive limited neuro exam Diagnostics: CBC CMP troponin PT/INR ammonia level UA urine culture blood culture 2 lactic acid chest x-ray Therapeutics: Saline 1 L bolus Zosyn 3.375 IV vancomycin 1 g IV potassium rider 40 mEq Impression: #1 hypoxemia #2 pneumonia #3 rule out sepsis #4 DNR Definitive disposition and diagnosis as appropriate pending reevaluation and review of above. - Related Data Allergies Allergy/AdvReac Type Severity Reaction Status Date / Time acetaminophen [From Tylenol] Allergy Shortness Verified 03/17/18 13:29 of Breath perfume Allergy Rash Verified 03/17/18 13:29 Home Meds: Home Meds Carvedilol [Coreg] 12.5 mg PO BID 09/23/14 [History] Bisacodyl [Dulcolax] 10 mg RC Q72H PRN 04/02/17 [History] Ferrous Sulfate 325 mg PO TIDMEALS 04/02/17 [History] Hypromellose [Genteal Tears Severe] 1 applic EYEBOTH QID 04/02/17 [History] Magnesium Hydroxide [Milk of Magnesia] 30 ml PO Q24H PRN 04/02/17 [History] Albuterol Sulfate 2.5 mg IH Q4H PRN 04/06/17 [History] Sertraline HCl 25 mg PO DAILY 04/06/17 [History] atorvaSTATin [Lipitor] 20 mg PO BEDTIME 04/06/17 [History] Aspirin 81 mg PO DAILY 12/14/17 [History] Famotidine [Pepcid] 1 tab PO BEDTIME 12/14/17 [History] Fluticasone/Vilanterol [Breo Ellipta 200-25 Mcg INH] 1 puff INH DAILY 12/14/17 [ History] Furosemide [Lasix] 40 mg PO DAILY 12/14/17 [History] fentaNYL [Fentanyl] 37.5 mcg TD Q72H 12/14/17 [History] traMADol HCl [Tramadol HCl] 100 mg PO QAM 12/14/17 [History] Albuterol Sulfate 2.5 mg NEB BID 03/17/18 [History] Albuterol Sulfate 2.5 mg NEB Q4H PRN 03/17/18 [History] Carbamide Peroxide [Debrox 6.5% Otic Soln] 3 drop EARBOTH DAILY PRN 03/17/18 [ History] Docusate Sodium 100 mg PO BID 03/17/18 [History] Multivitamin [Daily Multiple Vitamin] 1 tab PO DAILY 03/17/18 [History] cycloSPORINE [Restasis] 1 drop EYEBOTH BID 03/17/18 [History] guaiFENesin 100 mg PO Q4H PRN 03/17/18 [History] metOLazone [Metolazone] 5 mg PO MOWEFR@0800 03/17/18 [History] traMADol [Ultram] 50 mg PO BEDTIME 03/17/18 [History] traMADol [Ultram] 50 mg PO Q4H PRN 03/17/18 [History] Past Medical History HEENT History: Reports: Other (See Below) Other HEENT History: both eyes has cataract Cardiovascular History: Reports: Afib, High Cholesterol, Hypertension, Other ( See Below) Other Cardiovascular History: irregular heartbeat Respiratory History: Reports: Asthma Gastrointestinal History: Reports: GERD, GI Bleed Genitourinary History: Reports: Renal Disease, UTI, Recurrent Other [employer] History: hysterectomy Musculoskeletal History: Reports: Muscular Dystrophy, Osteoarthritis, RA Neurological History: Reports: Other (See Below) Other Neuro History: disorientation Psychiatric History: Reports: Depression Endocrine/Metabolic History: Reports: Diabetes, Type II Hematologic History: Reports: Anemia - Infectious Disease History Infectious Disease History: Reports: Other (See Below) Other Infectious Disease History: Unable to obtain due to pt condition - Past Surgical History Female Surgical History: Reports: Hysterectomy Musculoskeletal Surgical History: Reports: Other (See Below) Other Musculoskeletal Surgeries/Procedures:: left hip surgery, bilateral knee surgery Social & Family History - Family History Family Medical History: Noncontributory - Caffeine Use Caffeine Use: Reports: None ED ROS GENERAL - Review of Systems Review Of Systems: ROS reveals no pertinent complaints other than HPI. ED EXAM, GENERAL - Physical Exam Exam: See Below (See dictation) Course - Vital Signs Text/Narrative:: Patient patient had cardiopulmonary arrest at 1012 peacefully pronounced 1012 - Orders/Labs/Meds Orders: Active Orders 24 hr Category Date Time Status Cardiac Monitoring [RC] . DIRECTED Care 04/06/18 09:30 Active EKG Documentation Completion [RC] STAT Care 04/06/18 09:30 Active Oxygen Therapy, ED [RC] ASDIRECTED Care 04/06/18 09:30 Active Pulse Oximetry [RC] ASDIRECTED Care 04/06/18 09:30 Active Chest 1V Frontal [CR] Stat Exams 04/06/18 09:31 Ordered AMMONIA VENOUS [CHEM] Stat Lab 04/06/18 09:49 Received B-TYPE NATRIURETIC PEPTIDE,BNP [CHEM] Stat Lab 04/06/18 09:30 Ordered BLOOD GAS ARTERIAL [BG] Stat Lab 04/06/18 09:31 Ordered CBC WITH AUTO DIFF [HEME] Stat Lab 04/06/18 09:30 Ordered COMPREHENSIVE METABOLIC PN,CMP [CHEM] Stat Lab 04/06/18 09:49 Received CULTURE BLOOD [BC] Stat Lab 04/06/18 09:31 Ordered CULTURE BLOOD [BC] Stat Lab 04/06/18 09:49 Received INR,PT,PROTHROMBIN TIME [COAG] Stat Lab 04/06/18 09:31 Ordered LACTATE WITH REFLEX [BG] Stat Lab 04/06/18 09:49 Received MAGNESIUM [CHEM] Stat Lab 04/06/18 09:55 Received TROPONIN I [CHEM] Stat Lab 04/06/18 09:49 Received UA W/CAMELIA RFLX IF INDICATED [URIN] Stat Lab 04/06/18 09:31 Ordered Potassium Chloride Riders [KCL 40 MEQ in Water 100 ML] Med 04/06/18 09:36 Active 40 meq Premix Bag 1 bag IV ONETIME Sodium Chloride 0.9% [Normal Saline] 1,000 ml Med 04/06/18 09:31 Active IV STAT Sodium Chloride 0.9% [Saline Flush] Med 04/06/18 09:30 Active 10 ml FLUSH ASDIRECTED PRN Sodium Chloride 0.9% [Saline Flush] Med 04/06/18 09:30 Active 2.5 ml FLUSH ASDIRECTED PRN Vancomycin [Vancocin] 1 gm Med 04/06/18 09:32 Active Sodium Chloride 0.9% [Normal Saline] 250 ml IV ONETIME Blood Culture x2 Reflex Set [OM.PC] Stat Oth 04/06/18 09:31 Ordered Saline Lock Insert [OM.PC] Stat Oth 04/06/18 09:30 Ordered Medication Orders Sodium Chloride (Normal Saline) 1,000 mls @ 999 mls/hr IV STAT ONE Stop: 04/06/18 10:31 Last Admin: 04/06/18 09:58 Dose: 999 mls/hr Vancomycin HCl 1 gm/ Sodium (Chloride) 250 mls @ 250 mls/hr IV ONETIME ONE Stop: 04/06/18 10:31 Potassium Chloride 40 meq/ (Premix) 100 mls @ 25 mls/hr IV ONETIME ONE Stop: 04/06/18 13:35 Sodium Chloride (Saline Flush) 10 ml FLUSH ASDIRECTED PRN PRN Reason: Keep Vein Open Sodium Chloride (Saline Flush) 2.5 ml FLUSH ASDIRECTED PRN PRN Reason: Keep Vein Open Meds: Medications Generic Name Dose Route Start Last Admin Trade Name Freq PRN Reason Stop Dose Admin Sodium Chloride 1,000 mls @ 999 mls/hr 04/06/18 09:31 04/06/18 09:58 Normal Saline IV 04/06/18 10:31 999 mls/hr STAT ONE Administration Vancomycin HCl 1 gm/ Sodium 250 mls @ 250 mls/hr 04/06/18 09:32 Chloride IV 04/06/18 10:31 ONETIME ONE Potassium Chloride 40 meq/ 100 mls @ 25 mls/hr 04/06/18 09:36 Premix IV 04/06/18 13:35 ONETIME ONE Sodium Chloride 10 ml 04/06/18 09:30 Saline Flush FLUSH ASDIRECTED PRN Keep Vein Open Sodium Chloride 2.5 ml 04/06/18 09:30 Saline Flush FLUSH ASDIRECTED PRN Keep Vein Open Discontinued Medications Generic Name Dose Route Start Last Admin Trade Name Freq PRN Reason Stop Dose Admin Piperacillin Sod/Tazobactam 50 mls @ 100 mls/hr 04/06/18 09:32 Sod 3.375 gm/ Sodium Chloride IV 04/06/18 10:01 ONETIME ONE Departure - Departure Time of Disposition: 10:14 Disposition: 20 Clinical Impression: Cardiopulmonary arrest - Discharge Information - My Orders Last 24 Hours: My Active Orders 04/06/18 09:30 Cardiac Monitoring [RC] . DIRECTED EKG Documentation Completion [RC] STAT Oxygen Therapy, ED [RC] ASDIRECTED Pulse Oximetry [RC] ASDIRECTED B-TYPE NATRIURETIC PEPTIDE,BNP [CHEM] Stat CBC WITH AUTO DIFF [HEME] Stat Sodium Chloride 0.9% [Saline Flush] 10 ml FLUSH ASDIRECTED PRN Sodium Chloride 0.9% [Saline Flush] 2.5 ml FLUSH ASDIRECTED PRN Saline Lock Insert [OM.PC] Stat 04/06/18 09:31 Chest 1V Frontal [CR] Stat BLOOD GAS ARTERIAL [BG] Stat CULTURE BLOOD [BC] Stat INR,PT,PROTHROMBIN TIME [COAG] Stat UA W/CAMELIA RFLX IF INDICATED [URIN] Stat Sodium Chloride 0.9% [Normal Saline] 1,000 ml IV STAT Blood Culture x2 Reflex Set [OM.PC] Stat 04/06/18 09:32 Vancomycin [Vancocin] 1 gm Sodium Chloride 0.9% [Normal Saline] 250 ml IV ONETIME 04/06/18 09:36 Potassium Chloride Riders [KCL 40 MEQ in Water 100 ML] 40 meq Premix Bag 1 bag IV ONETIME 04/06/18 09:49 AMMONIA VENOUS [CHEM] Stat COMPREHENSIVE METABOLIC PN,CMP [CHEM] Stat CULTURE BLOOD [BC] Stat LACTATE WITH REFLEX [BG] Stat TROPONIN I [CHEM] Stat 04/06/18 09:55 MAGNESIUM [CHEM] Stat - Assessment/Plan Last 24 Hours: My Active Orders 04/06/18 09:30 Cardiac Monitoring [RC] . DIRECTED EKG Documentation Completion [RC] STAT Oxygen Therapy, ED [RC] ASDIRECTED Pulse Oximetry [RC] ASDIRECTED B-TYPE NATRIURETIC PEPTIDE,BNP [CHEM] Stat CBC WITH AUTO DIFF [HEME] Stat Sodium Chloride 0.9% [Saline Flush] 10 ml FLUSH ASDIRECTED PRN Sodium Chloride 0.9% [Saline Flush] 2.5 ml FLUSH ASDIRECTED PRN Saline Lock Insert [OM.PC] Stat 04/06/18 09:31 Chest 1V Frontal [CR] Stat BLOOD GAS ARTERIAL [BG] Stat CULTURE BLOOD [BC] Stat INR,PT,PROTHROMBIN TIME [COAG] Stat UA W/CAMELIA RFLX IF INDICATED [URIN] Stat Sodium Chloride 0.9% [Normal Saline] 1,000 ml IV STAT Blood Culture x2 Reflex Set [OM.PC] Stat 04/06/18 09:32 Vancomycin [Vancocin] 1 gm Sodium Chloride 0.9% [Normal Saline] 250 ml IV ONETIME 04/06/18 09:36 Potassium Chloride Riders [KCL 40 MEQ in Water 100 ML] 40 meq Premix Bag 1 bag IV ONETIME 04/06/18 09:49 AMMONIA VENOUS [CHEM] Stat COMPREHENSIVE METABOLIC PN,CMP [CHEM] Stat CULTURE BLOOD [BC] Stat LACTATE WITH REFLEX [BG] Stat TROPONIN I [CHEM] Stat 04/06/18 09:55 MAGNESIUM [CHEM] Stat
[2018-04-06 14:56] VITALS: BP 110/48
== END 2018-04-06 10:13 | disposition expired ==
LOC: MW.ED 09:24
DX: I46.9 Cardiac arrest, cause unspecified (principal); J18.9 Pneumonia, unspecified organism; I10 Essential (primary) hypertension; E78.00 Pure hypercholesterolemia, unspecified; I48.91 Unspecified atrial fibrillation; K21.9 Gastro-esophageal reflux disease without esophagitis; F32.9 Major depressive disorder, single episode, unspecified; E11.9 Type 2 diabetes mellitus without complications; Z79.899 Other long term (current) drug therapy; Z79.82 Long term (current) use of aspirin; Z91.09 Other allergy status, other than to drugs and biological substances
CPT/HCPCS: 99285; J7040